=== PATIENT | male | born 1980 | race Caucasian/White ===

== ENCOUNTER 2019-02-20 06:50 | Inpatient (IN) | payer BC ==
[2019-02-20] MEDS ORDERED: HYDROmorphone 1 MG/ML Syringe IVPUSH PRN (07:18)
[2019-02-20] MEDS ORDERED: Sodium Chloride 0.9% 10 ML Syringe FLUSH PRN (07:22)
[2019-02-20] MEDS ORDERED: Sodium Chloride 0.9% 2.5 ML Syringe FLUSH PRN (07:22)
[2019-02-20] MEDS ORDERED: Sodium Chloride 0.9% 10 ML SDV IV PRN (07:22)
[2019-02-20] MEDS ORDERED: Lactated Ringers 1,000 ML IV SCH (07:30)
[2019-02-20] MEDS ORDERED: Bupivacaine 25%/EPINEPHrine/PF 30 ML ONE (07:30)
[2019-02-20] MEDS ORDERED: Propofol 200 MG/20 ML SDV ONE (07:32)
[2019-02-20] MEDS ORDERED: Lidocaine 2% 5 ML SDV ONE (07:32)
[2019-02-20] MEDS ORDERED: Rocuronium 100 MG/10 ML Syringe ONE ×2 (07:32→10:56)
[2019-02-20] MEDS ORDERED: Midazolam 1 MG/ML 2 ML SDV ONE (07:33)
[2019-02-20] MEDS ORDERED: fentaNYL 250 MCG/5 ML SDV ONE (07:33)
--- NOTE | 2019-02-20 08:04 | PCM.PREANE ---
Preanesthetic Assessment - Anesthesia/Transfusion/Family Hx Anesthesia History: Prior Anesthesia Without Reaction Family History of Anesthesia Reaction: No Transfusion History: No Prior Transfusion(s) - Review of Systems Pulmonary: No Symptoms Cardiovascular: No Symptoms Gastrointestinal: Abdominal Pain Neurological: No Symptoms Other: Reports: None - Physical Assessment ASA Class: 2E Mental Status: Alert & Oriented x3 Airway Class: Mallampati = 2 Dentition: Reports: Normal Dentition ROM/Head Extension: Full Lungs: Clear to Auscultation, Normal Respiratory Effort Cardiovascular: Regular Rate, Regular Rhythm - Allergies Allergies/Adverse Reactions: Allergies Allergy/AdvReac Type Severity Reaction Status Date / Time Sulfa (Sulfonamide Allergy Redness Verified 10/15/18 04:11 MDT Antibiotics) - Blood Blood Available: No - Anesthesia Plan Pre-Op Medication Ordered: None - Acknowledgements Anesthesia Type Planned: General Anesthesia Pt an Appropriate Candidate for the Planned Anesthesia: Yes Alternatives and Risks of Anesthesia Discussed w Pt/Guardian: Yes Pt/Guardian Understands and Agrees with Anesthesia Plan: Yes Additional Comments: PMH: acute abdomen, s/p prior appy, hx meth use last 3 days ago, npo 24 hr PLAN: GET for diagnostic laparoscopy followed by open xlap if necessary PreAnesthesia Questionnaire Respiratory History: Reports: Bronchitis, Recurrent Other Respiratory History: as a child Gastrointestinal History: Reports: Other (See Below) Other Gastrointestinal History: Bloody diarrhea (e.coli) and colitis February 2018 Other Musculoskeletal History: Injury/Hairline fracture to right foot resulting in DVT to right calf. Neurological History: Reports: None Psychiatric History: Reports: None Endocrine/Metabolic History: Reports: None Hematologic History: Reports: Other (See Below) Other Hematologic History: Used Xarelto for DVT diagnosis. - Infectious Disease History Infectious Disease History: Reports: Other (See Below) Other Infectious Disease History: e-coli - Past Surgical History HEENT Surgical History: Reports: LASIK - HOME MEDS Home Medications: Home Meds Amoxicillin/Potassium Clav [Amox Tr-K Clv 875-125 mg Tab] 1 each PO BID 10 Days #20 tablet 10/20/18 [Rx] HYDROmorphone [Dilaudid] 2 mg PO TID PRN 30 Days #60 tab 10/20/18 [Rx] - CURRENT (IN HOUSE) MEDS Current Meds: Current Medications Hydromorphone HCl (Dilaudid) 0.5 mg IVPUSH Q1H PRN PRN Reason: Abdominal Pain Lactated Ringer's (Ringers, Lactated) 1,000 mls @ 125 mls/hr IV ASDIRECTED UMA Sodium Chloride (Saline Flush) 10 ml FLUSH ASDIRECTED PRN PRN Reason: Keep Vein Open Sodium Chloride (Saline Flush) 2.5 ml FLUSH ASDIRECTED PRN PRN Reason: Keep Vein Open Sodium Chloride (Normal Saline) 10 ml IV ASDIRECTED PRN PRN Reason: IV Use Discontinued Medications Fentanyl (Sublimaze) Confirm Administered Dose 250 mcg .ROUTE .STK-MED ONE Stop: 02/20/19 07:34 Bupivacaine HCl/Epinephrine Bitart (Sensorc Mpf 0.25%-Epi 1:[id number]) Confirm Administered Dose 30 mls @ as directed .ROUTE .STK-MED ONE Stop: 02/20/19 07:31 Lidocaine (Xylocaine-Mpf 2%) Confirm Administered Dose 5 ml .ROUTE .STK-MED ONE Stop: 02/20/19 07:33 Midazolam HCl (Versed 1 Mg/Ml) Confirm Administered Dose 2 mg .ROUTE .STK-MED ONE Stop: 02/20/19 07:34 Propofol (Diprivan 20 Ml) Confirm Administered Dose 400 mg .ROUTE .STK-MED ONE Stop: 02/20/19 07:33 Rocuronium Sapello (Zemuron) Confirm Administered Dose 100 mg .ROUTE .STK-MED ONE Stop: 02/20/19 07:33 Succinylcholine Chloride (Succinylcholine Chloride) Confirm Administered Dose 200 mg .ROUTE .STK-MED ONE Stop: 02/20/19 07:33
[2019-02-20] MEDS ORDERED: Sodium Chloride 0.9% 20 ML ONE (08:31)
[2019-02-20] MEDS ORDERED: Phenylephrine/Normal Saline 100 MCG/ML 10 ML Syringe ONE (08:40)
[2019-02-20] MEDS ORDERED: cefOXitin 100 ML ONE (08:40)
[2019-02-20] MEDS ORDERED: 50% Dextrose in Water 50 ML Syringe IVPUSH PRN (08:51)
[2019-02-20] MEDS ORDERED: Albuterol 0.083% 2.5 MG/3 ML Neb Soln NEB PRN (08:51)
[2019-02-20] MEDS ORDERED: Atropine 0.1 MG/ML 10 ML Syringe IVPUSH PRN ×2 (08:51)
[2019-02-20] MEDS ORDERED: Naloxone 0.4 MG/ML Syringe IVPUSH PRN (08:51)
[2019-02-20] MEDS ORDERED: EPINEPHrine 1:10,000 1 MG/10 ML Syringe IVPUSH PRN (08:51)
[2019-02-20] MEDS ORDERED: fentaNYL 100 MCG/2 ML SDV IVPUSH PRN (08:51)
[2019-02-20] MEDS ORDERED: ceFAZolin 1 GM Vial ONE (09:48)
[2019-02-20] MEDS ORDERED: HYDROmorphone 2 MG/ML Syringe ONE ×3 (09:58→15:26)
[2019-02-20] MEDS ORDERED: Sugammadex Sodium 200 MG/2 ML VIAL ONE (10:59)
[2019-02-20] MEDS ORDERED: Ondansetron 4 MG/2 ML SDV ONE (11:56)
[2019-02-20] MEDS ORDERED: Dexamethasone 4 MG/ML 5 ML MDV ONE (11:56)
--- NOTE | 2019-02-20 12:19 | PCM.SN ---
- Free Text/Narrative Note: pt seen, chart reviewed; acute appendicitis w ascites, no free air, 4 mos after lap appendectomy at outside hospital; discussed ct w 2 radiologist reading, lots of pus, appendix 2.4 cm w appendicolith, clinically surgical abdomen, pt is taking to or for ex lap, poss appendectomy, poss bowel resection, poss ostomy ; pt concurred and proceed [id number]
[2019-02-20] MEDS ORDERED: cefOXitin 1 GM in Premix Bag 1 BAG IV SCH (12:30)
[2019-02-20] MEDS: Labetalol 100 MG/20 ML MDV IVPUSH ONE ×2 (12:43→13:15)
--- NOTE | 2019-02-20 12:44 | PCM.OPNOTE ---
- General Post-Op/Procedure Note Date of Surgery/Procedure: 02/20/19 Operative Procedure(s): 1) laparoscopic attempt converted to open appendectomy. 2) ex lap. 3) appendectomy Findings: appendix completely fibrotic and confirmed by path on frozen session; peritoneal fluid is purulent, and an appendicolith was flowing in the appendicoth mass; [id number] Pre Op Diagnosis: acute appendicitis Post-Op Diagnosis: interval appendicitis Anesthesia Technique: General ET Tube Primary Surgeon: Benjamin Quinones Secondary Surgeon: Lashonda Tellez Pathology: sent Surgical Drain/Tube Type: Matthew Graf Flat Drain Complications: None Condition: Good
[2019-02-20] MEDS ORDERED: Labetalol 100 MG/20 ML MDV IVPUSH ONE (13:11)
[2019-02-20] MEDS: HYDROmorphone 2 MG/ML Syringe ONE ×2 (13:21→13:33)
[2019-02-20] MEDS ORDERED: HYDROmorphone 2 MG/ML Syringe IVPUSH PRN (13:31)
[2019-02-20] MEDS ORDERED: hydrALAZINE 20 MG/ML SDV IVPUSH ONE ×3 (13:32→15:09)
--- NOTE | 2019-02-20 14:45 | PCM.POSTAN ---
POST ANESTHESIA ASSESSMENT - MENTAL STATUS Mental Status: Somnolent - VITAL SIGNS Vital Signs: Last Vital Signs Temp 99.9 F 02/20/19 12:10 Pulse 80 02/20/19 14:30 Resp 12 02/20/19 14:30 BP 162/97 H 02/20/19 14:30 Pulse Ox 99 02/20/19 14:30 - RESPIRATORY Respiratory Status: Respiratory Rate WNL, Airway Patent, O2 Saturation Stable, Supplemental Oxygen - CARDIOVASCULAR CV Status: Pulse Rate WNL, Elevated Blood Pressure (diastolic BP down from 115 to 99 after labetalol 20+20, and hydralazine 10 mg) - GASTROINTESTINAL GI Status: No Symptoms - POST OP HYDRATION Hydration Status: Adequate & Stable - OBSERVATIONS Free Text/Narrative:: I believe this patient wouold benefit from the closing nursing care in our ICU for: 1) monitoring and control of hypertension, 2)monitoring for respiratory depression from parenteral narcotics- pt already showing pain/sedation mismatch 3) monitoring and care for withdrawl from stimulant use disorder. Discussed with resident on hospitalist service. Agreed to admit to ICU when bed/ nursing staff can be arrainged.
--- NOTE | 2019-02-20 14:52 | PCM.CONS ---
H&P History of Present Illness - General Date of Service: 02/20/19 Admit Problem/Dx: Admission Diagnosis/Problem Admission Diagnosis/Problem Peritonitis - History of Present Illness Initial Comments - Free Text/Narative: The patient is a 38 year old male admitted by general surgery, Dr. Quinones, after exploratory laparotomy and appendectomy. Per report he had a necrotic appendix adhered to the right bowel wall. The patient had undergone a laparoscopic appendectomy 6 months ago at an outside facility, no appendix was visualized and he was closed. The patient reports methamphetamine and marijuana use. Uses meth every couple weeks, last use was on Monday. Uses marijuana daily. No IV drug use since 2009. Has a couple drinks every once in a while, no regular use , no history of withdrawal. Smokes 1/2 pack of cigarettes daily. Postoperatively he was hypertensive with a BP of 171/107, after 2 doses of 20 mg labetalol and 10 mg hydralazine his blood pressure improved to 159/105. Rebecca denies history of blood pressure issues. Patient reports he had a DVT sometime last year, was on Xarelto, ran out of insurance and hasn't taken it in 3-4 months. Has been taking aspirin. Only complaint is abdominal pain. - Related Data Allergies/Adverse Reactions: Allergies Allergy/AdvReac Type Severity Reaction Status Date / Time Sulfa (Sulfonamide Allergy Redness Verified 10/15/18 04:11 MDT Antibiotics) Home Medications: Home Meds Amoxicillin/Potassium Clav [Amox Tr-K Clv 875-125 mg Tab] 1 each PO BID 10 Days #20 tablet 10/20/18 [Rx] HYDROmorphone [Dilaudid] 2 mg PO TID PRN 30 Days #60 tab 10/20/18 [Rx] Past Medical History HEENT History: Reports: None Cardiovascular History: Reports: None Respiratory History: Reports: Bronchitis, Recurrent Other Respiratory History: as a child Gastrointestinal History: Reports: Other (See Below) Other Gastrointestinal History: Bloody diarrhea (e.coli) and colitis February 2018 Other Musculoskeletal History: Injury/Hairline fracture to right foot resulting in DVT to right calf. Neurological History: Reports: None Psychiatric History: Reports: None Endocrine/Metabolic History: Reports: None Hematologic History: Reports: Other (See Below) Other Hematologic History: Used Xarelto for DVT diagnosis. - Infectious Disease History Infectious Disease History: Reports: Other (See Below) Other Infectious Disease History: e-coli - Past Surgical History HEENT Surgical History: Reports: RAMOS Social & Family History - Family History Cardiac: Reports: Hypertension - Tobacco Use Smoking Status *Q: Current Every Day Smoker Packs/Tins Daily: 0.5 - Caffeine Use Caffeine Use: Reports: Coffee, Soda - Alcohol Use Alcohol Use History: Yes - Recreational Drug Use Recreational Drug Use: Yes Drug Use in Last 12 Months: Yes Recreational Drug Type: Reports: Marijuana/Hashish, Methamphetamine - Living Situation & Occupation Living situation: Reports: Single Occupation: Employed (Works in heavy equipment) H&P Review of Systems - Review of Systems: Review Of Systems: See Below General: Reports: Diaphoresis. Denies: Fever HEENT: Reports: No Symptoms Pulmonary: Reports: No Symptoms Cardiovascular: Reports: No Symptoms Gastrointestinal: Reports: Abdominal Pain Genitourinary: Reports: No Symptoms Musculoskeletal: Reports: No Symptoms Skin: Reports: No Symptoms Psychiatric: Reports: No Symptoms Neurological: Reports: No Symptoms Hematologic/Lymphatic: Reports: No Symptoms Immunologic: Reports: No Symptoms Exam - Exam Exam: See Below - Vital Signs Vital Signs: Last Vital Signs Temp 99.9 F 02/20/19 12:10 Pulse 80 02/20/19 14:30 Resp 12 02/20/19 14:30 BP 162/97 H 02/20/19 14:30 Pulse Ox 99 02/20/19 14:30 - Exam Quality Assessment: Supplemental Oxygen General: Alert, Oriented HEENT: Conjunctiva Clear, EOMI, Mucosa Moist & Thomas, Posterior Pharynx Clear, Pupils Equal, Pupils Reactive Neck: Supple, Trachea Midline Lungs: Clear to Auscultation, Normal Respiratory Effort Cardiovascular: Regular Rate, Regular Rhythm GI/Abdominal Exam: Other (abominal bandage with VIGNESH tube in place and draining. NG in place) Extremities: No Pedal Edema Skin: Warm, Moist Neuro Extensive - Mental Status: Alert Psychiatric: Alert, Normal Affect, Normal Mood - Patient Data Sj Results Last 24 hrs: Microbiology 02/20/19 09:07 Gram Stain - Preliminary Peritoneal Fluid Consult PN Assessment/Plan Problem List Initiated/Reviewed/Updated: Yes My Orders Last 24 Hours: My Active Orders 02/20/19 14:28 Transfer Patient (Change bed) [ADT] ONETIME Plan: Medical Team Consult: 1. S/P exploratory laparotomy and appendectomy- orders per primary team--surgery 2.Hx of meth and marijuana use, concern about withdrawal- will order prn Ativan for withdrawal symptoms 3. Post- operative HTN- ensure adequate pain control, will continue to monitor DVT prophylaxis- medical team recommends DVT prophylaxis-will leave decision to primary team
--- NOTE | 2019-02-20 15:13 | OR ---
SURGEON: Benjamin Quinones MD DATE OF PROCEDURE: 02/20/2019 PREOPERATIVE DIAGNOSIS: Acute appendicitis. POSTOPERATIVE DIAGNOSIS: Interval appendectomy. PRIMARY SURGEON: Benjamin Quinones MD. FIREARMS INSPECTOR: Lashonda Tellez MD. COMPLICATIONS: None. PROCEDURES PERFORMED: 1. Laparoscopic converted to open appendectomy. 2. Exploratory laparotomy. 3. Appendectomy. FINDINGS: The appendix apparently is totally fibrotic and becomes flat down into the back wall of the peritoneal cavity and it was confirmed with pathology on frozen section. There was no lumen of the appendix and the appendix and the terminal ileum and the cecum forming a mass and an appendicolith was flowing in that neighborhood. Peritoneal fluid is completely purulent. DESCRIPTION OF PROCEDURE: The patient was taken to the operating room and placed in the supine position. Upon induction of general endotracheal anesthesia, the patient's abdomen was prepped and draped in sterile fashion. Time-out was being called, the patient identified, procedure identified, antibiotic given. Procedure then started. After assessment of appropriate landmarks, using Diamond technique, a 12 mm trocar was placed, supraumbilical. Upon gaining entrance in the abdominal cavity, immediately encountered a large amount of purulent peritoneal fluid. Then followed with placement of 5 mm trocar on the right upper quadrant and the suprapubic area. Once gained entrance to abdominal cavity , pneumopertoneum was accomplished. Followed the tenia of the colonto cecum, could not find any appendix or appendix stump either. Ffinally we obtained a report from outside hospital that a laparoscopic appendectomy was attempted, but no appendix found in previous surgery. So in a situation like that, with the patient clearly with peritonitis and abd abscess, and with CT scan reading as acute appendicitis, or appendicitis of appendix stump, we decided to converted to exploratory laparotomy. Using a skin scalpel, a midline incision beveled to the left of the umbilicus was made and the peritoneal cavity was then entered in standard fashion. Upon gaining entrance in the peritoneal cavity, followed the tenia of the colon on the right colon and to the cecum. The terminal ileum was identified, the cecum identified, and failed to find any appendix or appendix stump. We finally mobilized the cecum a little bit towards the liver and found out that a flattened tubular structure, completely flattened, lying at the bottom of the abdominal wall, the posterior abdominal wall, and believed that this must be the appendix. So carefully delineated and mobilized the tubular structure and amputated at the base and sent for frozen section. Frozen section returned that it is the appendix, with the lumen obliterated. There were two holes at appendix cecal mass, likely where the appendicolith walled off, is now open; It was difficult to delineate where the actual attachment of the appendix is towards to cecum. Since the appendicolith came up by itself and the pus suggests that maybe the patient has a collection of purulent material, but somehow it opened up and caused the peritonitis. So with the two openings at the cecum, we put the whole thing under water level and squeezed the cecum. Failed to see any bubble such as it is not a perforation or the perforation has been walled off and sealed off. Again, we did this two times, failed to see any bubble from the cecum. So it may be a serosal tear or the fibrosis of the walled off perforated appendix in the past, which has been four months by now. We used a 3-0 pop-off silk and gave a Lambert stitch and closed the two holes and then buttressed with a piece of omentum, again using 3-0 pop-off to buttress the two openings. The piece of omentum used is about 4 x 4 cm followed by extensive irrigation. The irrigations are clear, which we used over 4 to 5 L of irrigation. A 10 flat VIGNESH drain was placed on the lower suprapubic trocar site, anchored to the skin using 2-0 silk. The peritoneal cavity was closed by the use of a double strand PDS #1. Upon closing, sponge count and instrument counts were correct and the skin approximated by use of skin staple. Every layer of closing was followed by extensive irrigation and followed by appropriate dressing. The patient was awakened, extubated, and transferred to recovery room in hemodynamically stable condition. The patient tolerated the procedure well. There were no intraoperative complications. Dr. Quinones was present throughout the whole procedure. LESLIE / JOHN /[id number] AC
[2019-02-20] MEDS ORDERED: LORazepam 2 MG/ML SDV IVPUSH PRN (15:40)
[2019-02-20] MEDS: Morphine PF 30 MG/30 ML PCA Vial IV PRN (15:50)
[2019-02-20 16:12] LABS: BLOOD UREA NITROGEN,BUN 10 mg/dL (7.0-18.0); CARBON DIOXIDE,CO2 22.7 mmol/L (21.0-32.0); CHLORIDE,CL 100 mmol/L (98-107); GLUCOSE RANDOM 152 mg/dL (74-106); POTASSIUM,K 4.4 mmol/L (3.5-5.1); SODIUM,NA 131 mmol/L (136-148)
[2019-02-20] MEDS: Lactated Ringers 1,000 ML IV SCH ×2 (16:20→22:30)
--- NOTE | 2019-02-20 16:50 | HP ---
DATE OF : 1980 PRIMARY CARE PHYSICIAN: None PCP ADMITTING DIAGNOSIS: Acute appendicitis. HISTORY OF PRESENT ILLNESS: The patient is a 38-year-old gentleman, complained about 18-hour history of acute onset of periumbilical pain, subsequently migrated to the right lower quadrant. Sought help in an outside medical center and CAT scan, the patient read as acute appendicitis with fluid, no free air. The patient was transferred to our hospital for further surgical management. The patient has a pretty confusing and complicated medical history about his appendix. The patient initially presented to outside facility, more detail is on present chart, and the best I can make out and the best can patient tell me is he had an attempted laparoscopic appendectomy done four months ago in October and apparently they could not find the appendix and so put in a drain and stopped. It was unclear at that time whether the patient's appendix is gone or not. Discussed with the radiologists and they maintained there was lot of pus and possible appendicitis of the appendix stump. We attempted trying very very hard getting contact with the other hospital and after 2-1/2 hours finally we got the op note which confirmed the whole story. The patient had attempted laparoscopic appendectomy, but failed to find appendix, so did not have appendix done. PAST MEDICAL HISTORY: Significant for no diabetes, ND, CVA, hypertension. On drug test, the patient has meth as well as marijuana. PAST SURGICAL HISTORY: Right inguinal hernia repair and attempted laparoscopic appendectomy. SOCIAL HISTORY: Recreational drug use, marijuana and meth. ALLERGIES: Please refer to nursing for details. MEDICATION: Please refer to nursing for details. PHYSICAL EXAMINATION: GENERAL: A gentleman who is lying with guarding in the bed, and any single move, the patient will scream out in loud voice. HEENT: Normocephalic and atraumatic. Sclerae anicteric. LUNGS: Clear to auscultation. HEART: Regular rate and rhythm. ABDOMEN: Guarding and decreased bowel sounds and exquisite tenderness in all four quadrants and positive peritoneal sign. LABORATORY DATA: White count 12.9 and CAT scan as alluded above. IMPRESSION: Acute surgical abdomen with elevated white count and possible dilated appendix of 2.4 cm with appendicolith per CAT scan and spent over 10 minutes with another radiology which maintained the same thing, likely acute appendicitis or appendix stump appendicitis. With the patient's clinical situation, elevated white count, peritoneal sign, and pain, the patient is taken to surgery by myself on an urgent basis and laparotomy, possible appendectomy, possible bowel resection, possible ostomy. The patient concurred to proceed as planned. Add: Pt later remarked he was doing a lot severe lifting/pushing/jumping up and down physical work, then he fell sick. It is possible the walled off abscess with appendicolith came lose due to trauma. LESLIE / JOHN /[id number] MTDOrly
[2019-02-20] MEDS: cefOXitin 1 GM in Premix Bag 1 BAG IV SCH ×2 (17:25→22:29)
--- NOTE | 2019-02-20 21:41 | PN ---
THC Physician - Brief Progress [id number]/18/2019 21:33[facility] Anupama Lorenzo, [place] - RICARDO (STEPHANI) - JACQUELYN BRENNANDate of Service 02/20/2019 21:33HPI/Events of N ote eICU Brief Admssion [id number] M presented with acute abdomen. S/p OR for ex lap for suspected appe ndicitis/peritonitis. Necrotic appendix resectedPost op HTN therefore moved to ICU for further monito ring and management.+Meth and MJ usageOn CameraAwake and alert, appropriate with bedside RNHR 105 Sin usBP 161/92RR 14 Sats 94%Preop labs reviewedOn Empiric antibiotics- cefoxitinPain controlDiet per Kristie geryPRN ativan and hydralazineProtonixSCDs for DVT prophInterventions Major-Hypertension - evaluation and management, Other: Post operative managementIntermediate-Communication with other healthcare pro viders and/or family
[2019-02-21] MEDS: Morphine PF 30 MG/30 ML PCA Vial IV PRN (03:40)
[2019-02-21] MEDS: cefOXitin 1 GM in Premix Bag 1 BAG IV SCH ×4 (04:37→23:25)
[2019-02-21] MEDS: Lactated Ringers 1,000 ML IV SCH ×3 (04:37→19:31)
[2019-02-21 07:13] LABS: BLOOD UREA NITROGEN,BUN 11 mg/dL (7.0-18.0); CARBON DIOXIDE,CO2 24.9 mmol/L (21.0-32.0); CHLORIDE,CL 99 mmol/L (98-107); GLUCOSE RANDOM 125 mg/dL (74-106); POTASSIUM,K 4.7 mmol/L (3.5-5.1); SODIUM,NA 133 mmol/L (136-148)
[2019-02-21] MEDS: Ondansetron 4 MG/2 ML SDV IVPUSH PRN ×2 (07:18→23:30)
--- NOTE | 2019-02-21 08:15 | PCM.CONSN ---
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 Would like Dilaudid. Reports abdominal pain from surgery. Would also like to eat and have NG tube removed. Medical team consulted on withdrawal symptoms and HTN. He has not needed any Ativan for withdrawal symptoms, UDS yesterday positive for THC and opioids (UDS obtained after surgery and he had received pain medications). His blood pressure was improved overnight in 140-150s/90s but is elevated this morning with his increased pain. Patient denies fever/chill, chest pain, shortness of breath, or nausea. - Review of Systems General: Reports: No Symptoms HEENT: Reports: No Symptoms Pulmonary: Reports: No Symptoms Cardiovascular: Reports: No Symptoms Gastrointestinal: Reports: Abdominal Pain. Denies: Nausea, Vomiting Genitourinary: Reports: No Symptoms Musculoskeletal: Reports: No Symptoms Skin: Reports: No Symptoms Neurological: Reports: No Symptoms Psychiatric: Reports: No Symptoms - Patient Data Vitals - Most Recent: Last Vital Signs Temp 98.1 F 02/21/19 04:00 Pulse 72 02/21/19 06:00 Resp 20 02/21/19 06:00 BP 172/91 H 02/21/19 06:00 Pulse Ox 94 L 02/21/19 06:00 Weight - Most Recent: 80.3 kg I&O - Last 24 Hours: Intake & Output 02/20/19 02/21/19 02/21/19 22:59 06:59 14:59 Intake Total 1100 1823 Output Total 1600 2532 Balance -500 -709 Lab Results Last 24 Hours: Laboratory Results - last 24 hr 02/20/19 02/20/19 02/20/19 Range/Units 15:30 15:30 19:45 WBC 19.25 H (4.0-11.0) K/uL RBC 4.82 (4.50-5.90) M/uL Hgb 14.8 (13.0-17.0) g/dL Hct 42.2 (38.0-50.0) % MCV 87.6 (80.0-98.0) fL MCH 30.7 (27.0-32.0) pg MCHC 35.1 (31.0-37.0) g/dL RDW Std Deviation 43.0 (28.0-62.0) fl RDW Coeff of Roe 14 (11.0-15.0) % Plt Count 176 (150-400) K/uL MPV 10.10 (7.40-12.00) fL Neut % (Auto) 96.7 H (48.0-80.0) % Lymph % (Auto) 1.6 L (16.0-40.0) % [place] % (Auto) 1.7 (0.0-15.0) % Eos % (Auto) 0.0 (0.0-7.0) % Baso % (Auto) 0.0 (0.0-1.5) % Neut # (Auto) 18.6 H (1.4-5.7) K/uL Lymph # (Auto) 0.3 L (0.6-2.4) K/uL [place] # (Auto) 0.3 (0.0-0.8) K/uL Eos # (Auto) 0.0 (0.0-0.7) K/uL Baso # (Auto) 0.0 (0.0-0.1) K/uL Nucleated RBC % 0.0 /100WBC Nucleated RBCs # 0 K/uL Sodium 131 L (136-148) mmol/L Potassium 4.4 (3.5-5.1) mmol/L Chloride 100 (98-107) mmol/L Carbon Dioxide 22.7 (21.0-32.0) mmol/L BUN 10 (7.0-18.0) mg/dL Creatinine 0.8 (0.8-1.3) mg/dL Est Cr Clr Drug Dosing TNP Estimated GFR (MDRD) > 60.0 ml/min Glucose 152 H (74-106) mg/dL Calcium 8.1 L (8.5-10.1) mg/dL Total Bilirubin 0.6 (0.2-1.0) mg/dL AST 19 (15-37) IU/L ALT 21 (14-63) IU/L Alkaline Phosphatase 47 (46-116) U/L Total Protein 6.3 L (6.4-8.2) g/dL Albumin 3.1 L (3.4-5.0) g/dL Globulin 3.2 (2.6-4.0) g/dL Albumin/Globulin Ratio 1.0 (0.9-1.6) Urine Opiates Screen POSITIVE (NEGATIVE) Ur Oxycodone Screen NEGATIVE (NEGATIVE) Urine Methadone Screen NEGATIVE (NEGATIVE) Ur Barbiturates Screen NEGATIVE (NEGATIVE) Ur Phencyclidine Scrn NEGATIVE (NEGATIVE) Ur Amphetamine Screen NEGATIVE (NEGATIVE) U Methamphetamines Scrn NEGATIVE (NEGATIVE) U Benzodiazepines Scrn NEGATIVE (NEGATIVE) U Cocaine Metab Screen NEGATIVE (NEGATIVE) U Marijuana (THC) Screen POSITIVE (NEGATIVE) 02/21/19 02/21/19 Range/Units 06:25 06:25 WBC 16.73 H (4.0-11.0) K/uL RBC 5.08 (4.50-5.90) M/uL Hgb 15.5 (13.0-17.0) g/dL Hct 44.8 (38.0-50.0) % MCV 88.2 (80.0-98.0) fL MCH 30.5 (27.0-32.0) pg MCHC 34.6 (31.0-37.0) g/dL RDW Std Deviation 44.3 (28.0-62.0) fl RDW Coeff of Roe 14 (11.0-15.0) % Plt Count 209 (150-400) K/uL MPV 10.30 (7.40-12.00) fL Neut % (Auto) 86.7 H (48.0-80.0) % Lymph % (Auto) 6.9 L (16.0-40.0) % [place] % (Auto) 6.2 (0.0-15.0) % Eos % (Auto) 0.1 (0.0-7.0) % Baso % (Auto) 0.1 (0.0-1.5) % Neut # (Auto) 14.5 H (1.4-5.7) K/uL Lymph # (Auto) 1.2 (0.6-2.4) K/uL [place] # (Auto) 1.0 H (0.0-0.8) K/uL Eos # (Auto) 0.0 (0.0-0.7) K/uL Baso # (Auto) 0.0 (0.0-0.1) K/uL Nucleated RBC % 0.0 /100WBC Nucleated RBCs # 0 K/uL Sodium 133 L (136-148) mmol/L Potassium 4.7 (3.5-5.1) mmol/L Chloride 99 (98-107) mmol/L Carbon Dioxide 24.9 (21.0-32.0) mmol/L BUN 11 (7.0-18.0) mg/dL Creatinine 1.1 (0.8-1.3) mg/dL Est Cr Clr Drug Dosing 98.96 Estimated GFR (MDRD) > 60.0 ml/min Glucose 125 H (74-106) mg/dL Calcium 8.9 (8.5-10.1) mg/dL Total Bilirubin (0.2-1.0) mg/dL AST (15-37) IU/L ALT (14-63) IU/L Alkaline Phosphatase (46-116) U/L Total Protein (6.4-8.2) g/dL Albumin (3.4-5.0) g/dL Globulin (2.6-4.0) g/dL Albumin/Globulin Ratio (0.9-1.6) Urine Opiates Screen (NEGATIVE) Ur Oxycodone Screen (NEGATIVE) Urine Methadone Screen (NEGATIVE) Ur Barbiturates Screen (NEGATIVE) Ur Phencyclidine Scrn (NEGATIVE) Ur Amphetamine Screen (NEGATIVE) U Methamphetamines Scrn (NEGATIVE) U Benzodiazepines Scrn (NEGATIVE) U Cocaine Metab Screen (NEGATIVE) U Marijuana (THC) Screen (NEGATIVE) Sj Results Last 24 Hours: Microbiology 02/20/19 09:07 Gram Stain - Preliminary Peritoneal Fluid Med Orders - Current: Current Medications Hydromorphone HCl (Dilaudid) 0.5 mg IVPUSH Q1H PRN PRN Reason: Abdominal Pain Pantoprazole Sodium 40 mg/ (Sodium Chloride) 10 mls @ 300 mls/hr IV DAILY UMA Lactated Ringer's (Ringers, Lactated) 1,000 mls @ 150 mls/hr IV ASDIRECTED UMA Last Admin: 02/21/19 04:37 Dose: 150 mls/hr Cefoxitin Sodium 1 gm/ Premix 50 mls @ 100 mls/hr IV Q6H UMA Last Admin: 02/21/19 04:37 Dose: 100 mls/hr Lorazepam (Ativan) 1 mg IVPUSH Q4H PRN PRN Reason: Withdrawal Symptoms Morphine Sulfate (Morphine Drier And Grinder Tender 30 Mg In 30 Ml) 0 mg IV ASDIRECTED PRN; Protocol PRN Reason: Pain (severe 7-10) Last Admin: 02/21/19 03:40 Dose: 30 mg Ondansetron HCl (Zofran) 4 mg IVPUSH Q8H PRN PRN Reason: Nausea/Vomiting Last Admin: 02/21/19 07:18 Dose: 4 mg Discontinued Medications Albuterol (Proventil Neb Soln) 2.5 mg NEB ONETIME PRN PRN Reason: Wheezing Atropine Sulfate (Atropine 0.1 Mg/Ml) 0.5 mg IVPUSH ASDIRECTED PRN PRN Reason: Hypo-perfusion Atropine Sulfate (Atropine 0.1 Mg/Ml) 1 mg IVPUSH ASDIRECTED PRN PRN Reason: Hypo-Perfusion Cefazolin Sodium (Ancef) Confirm Administered Dose 1 gm .ROUTE .STK-MED ONE Stop: 02/20/19 09:49 Dexamethasone (Dexamethasone) Confirm Administered Dose 20 mg .ROUTE .STK-MED ONE Stop: 02/20/19 11:57 Dextrose/Water (Dextrose 50% In Water) 50 ml IVPUSH ASDIRECTED PRN PRN Reason: Hypoglycemia Epinephrine HCl (Epinephrine 1:10,000) 1 mg IVPUSH ASDIRECTED PRN PRN Reason: ACLS Guidelines Fentanyl (Sublimaze) Confirm Administered Dose 250 mcg .ROUTE .STK-MED ONE Stop: 02/20/19 07:34 Fentanyl (Sublimaze) 50 mcg IVPUSH Q5M PRN PRN Reason: Pain Hydralazine HCl (Apresoline) 10 mg IVPUSH ONETIME ONE Stop: 02/20/19 13:33 Last Admin: 02/20/19 14:00 Dose: 10 mg Hydralazine HCl (Apresoline) 10 mg IVPUSH ONETIME ONE Stop: 02/20/19 14:01 Last Admin: 02/20/19 15:10 Dose: 10 mg Hydralazine HCl (Apresoline) 10 mg IVPUSH ONETIME ONE Stop: 02/20/19 15:10 Last Admin: 02/20/19 19:36 Dose: Not Given Hydromorphone HCl (Dilaudid) 0.5 mg IVPUSH Q1H PRN PRN Reason: Abdominal Pain Last Admin: 02/20/19 12:50 Dose: 0.5 mg Hydromorphone HCl (Dilaudid) Confirm Administered Dose 2 mg .ROUTE .STK-MED ONE Stop: 02/20/19 09:59 Hydromorphone HCl (Dilaudid) Confirm Administered Dose 2 mg .ROUTE .STK-MED ONE Stop: 02/20/19 12:46 Last Admin: 02/20/19 13:33 Dose: 1 mg Hydromorphone HCl (Dilaudid) Confirm Administered Dose 2 mg .ROUTE .ST-MED ONE Stop: 02/20/19 13:30 Last Admin: 02/20/19 19:36 Dose: Not Given Hydromorphone HCl (Dilaudid) Confirm Administered Dose 2 mg .ROUTE .ST-MED ONE Stop: 02/20/19 15:27 Last Admin: 02/20/19 15:31 Dose: 1 mg Lactated Ringer's (Ringers, Lactated) 1,000 mls @ 125 mls/hr IV ASDIRECTED [facility] Bupivacaine HCl/Epinephrine Bitart (Sensorc Mpf 0.25%-Epi [id number]) Confirm Administered Dose 30 mls @ as directed .ROUTE .ST-MED ONE Stop: 02/20/19 07:31 Sodium Chloride (Normal Saline) Confirm Administered Dose 20 mls @ as directed .ROUTE .ST-MED ONE Stop: 02/20/19 08:32 Cefoxitin Sodium (Mefoxin In Dextrose,Iso-Osm 1 Gm/50 Ml) Confirm Administered Dose 100 mls @ as directed .ROUTE .STK-MED ONE Stop: 02/20/19 08:41 Acetaminophen (Ofirmev) Confirm Administered Dose 100 mls @ as directed IV .ST- MED ONE Stop: 02/20/19 11:00 Cefoxitin Sodium 1 gm/ Premix 50 mls @ 100 mls/hr IV Q6H [facility] Last Admin: 02/20/19 19:01 Dose: Not Given Labetalol HCl (Normodyne) 20 mg IVPUSH ONETIME ONE; Protocol Stop: 02/20/19 12:32 Last Admin: 02/20/19 13:15 Dose: 20 mg Labetalol HCl (Normodyne) 20 mg IVPUSH ONETIME ONE; Protocol Stop: 02/20/19 13:12 Last Admin: 02/20/19 19:36 Dose: Not Given Lidocaine (Xylocaine-Mpf 2%) Confirm Administered Dose 5 ml .ROUTE .STK-MED ONE Stop: 02/20/19 07:33 Midazolam HCl (Versed 1 Mg/Ml) Confirm Administered Dose 2 mg .ROUTE .STK-MED ONE Stop: 02/20/19 07:34 Naloxone HCl (Narcan) 0.1 mg IVPUSH ASDIRECTED PRN PRN Reason: Respiratory Depression Ondansetron HCl (Zofran) Confirm Administered Dose 4 mg .ROUTE .STK-MED ONE Stop: 02/20/19 11:57 Phenylephrine HCl (Phenylephrine In Ns 100 Mcg/Ml) Confirm Administered Dose 1 mg .ROUTE .STK-MED ONE Stop: 02/20/19 08:41 Propofol (Diprivan 20 Ml) Confirm Administered Dose 400 mg .ROUTE .STK-MED ONE Stop: 02/20/19 07:33 Rocuronium [place] (Zemuron) Confirm Administered Dose 100 mg .ROUTE .STK-MED ONE Stop: 02/20/19 07:33 Rocuronium [place] (Zemuron) Confirm Administered Dose 100 mg .ROUTE .STK-MED ONE Stop: 02/20/19 10:57 Sodium Chloride (Saline Flush) 10 ml FLUSH ASDIRECTED PRN PRN Reason: Keep Vein Open Sodium Chloride (Saline Flush) 2.5 ml FLUSH ASDIRECTED PRN PRN Reason: Keep Vein Open Sodium Chloride (Normal Saline) 10 ml IV ASDIRECTED PRN PRN Reason: IV Use Succinylcholine Chloride (Succinylcholine Chloride) Confirm Administered Dose 200 mg .ROUTE .STK-MED ONE Stop: 02/20/19 07:33 Sugammadex Sodium (Bridion) Confirm Administered Dose 200 mg .ROUTE .STK-MED ONE Stop: 02/20/19 11:00 - Exam General: Alert, Oriented, Cooperative HEENT: Other (NG tube placed) Lungs: Clear to Auscultation, Normal Respiratory Effort Cardiovascular: Regular Rate, Regular Rhythm GI/Abdominal Exam: Other (bandaged, VIGNESH drain) Extremities: No Pedal Edema Skin: Warm, Dry Neurological: No New Focal Deficit Psy/Mental Status: Alert, Normal Affect, Normal Mood Consult PN Assessment/Plan Problem List Initiated/Reviewed/Updated: Yes My Orders Last 24 Hours: My Active Orders 02/20/19 14:28 Transfer Patient (Change bed) [ADT] ONETIME 02/20/19 15:40 LORazepam [Ativan] 1 mg IVPUSH Q4H PRN Plan: Medical Team Consult: 1. S/P exploratory laparotomy and appendectomy- orders per primary team--surgery , on Cefoxitin, NPO with NG placed. Patient requesting NG removed and diet, orders per primary team. 2.Hx of meth and marijuana use, concern about withdrawal- UDS positive for THC but not meth. Will order prn Ativan for withdrawal symptoms- hasn't received any Ativan 3. Post- operative HTN- ensure adequate pain control, patient reports pain not adequately controlled, requesting Dilaudid- pain control per primary team. Continue to monitor BP. DVT prophylaxis- medical team recommends DVT prophylaxis-will leave decision to primary team
[2019-02-21] MEDS: Pantoprazole 40 MG in Sodium Chloride 0.9% 10 ML IV SCH (09:24)
[2019-02-21] MEDS: LORazepam 2 MG/ML SDV IVPUSH SCH ×2 (10:05→19:02)
--- NOTE | 2019-02-21 10:37 | PCM.SURGPN ---
- General Info Date of Service: 02/21/19 Functional Status: Reports: Urinating - Review of Systems General: Reports: No Symptoms Pulmonary: Reports: No Symptoms Gastrointestinal: Reports: Abdominal Pain (improving per pt) Systems Review Comment:: wants to eat, ngt output minimal; - Patient Data Vitals - Most Recent: Last Vital Signs Temp 98.3 F 02/21/19 09:00 Pulse 72 02/21/19 06:00 Resp 18 02/21/19 09:00 BP 171/97 H 02/21/19 09:00 Pulse Ox 96 02/21/19 09:00 Weight - Most Recent: 177 lb 0.499 oz I&O - Last 24 Hours: Intake & Output 02/20/19 02/21/19 02/21/19 22:59 06:59 14:59 Intake Total 1100 1823 Output Total 1600 2532 25 Balance -500 -709 -25 Lab Results Last 24 Hrs: Laboratory Results - last 24 hr 02/20/19 02/20/19 02/20/19 Range/Units 15:30 15:30 19:45 WBC 19.25 H (4.0-11.0) K/uL RBC 4.82 (4.50-5.90) M/uL Hgb 14.8 (13.0-17.0) g/dL Hct 42.2 (38.0-50.0) % MCV 87.6 (80.0-98.0) fL MCH 30.7 (27.0-32.0) pg MCHC 35.1 (31.0-37.0) g/dL RDW Std Deviation 43.0 (28.0-62.0) fl RDW Coeff of Roe 14 (11.0-15.0) % Plt Count 176 (150-400) K/uL MPV 10.10 (7.40-12.00) fL Neut % (Auto) 96.7 H (48.0-80.0) % Lymph % (Auto) 1.6 L (16.0-40.0) % [place] % (Auto) 1.7 (0.0-15.0) % Eos % (Auto) 0.0 (0.0-7.0) % Baso % (Auto) 0.0 (0.0-1.5) % Neut # (Auto) 18.6 H (1.4-5.7) K/uL Lymph # (Auto) 0.3 L (0.6-2.4) K/uL [place] # (Auto) 0.3 (0.0-0.8) K/uL Eos # (Auto) 0.0 (0.0-0.7) K/uL Baso # (Auto) 0.0 (0.0-0.1) K/uL Nucleated RBC % 0.0 /100WBC Nucleated RBCs # 0 K/uL Sodium 131 L (136-148) mmol/L Potassium 4.4 (3.5-5.1) mmol/L Chloride 100 (98-107) mmol/L Carbon Dioxide 22.7 (21.0-32.0) mmol/L BUN 10 (7.0-18.0) mg/dL Creatinine 0.8 (0.8-1.3) mg/dL Est Cr Clr Drug Dosing TNP Estimated GFR (MDRD) > 60.0 ml/min Glucose 152 H (74-106) mg/dL Calcium 8.1 L (8.5-10.1) mg/dL Total Bilirubin 0.6 (0.2-1.0) mg/dL AST 19 (15-37) IU/L ALT 21 (14-63) IU/L Alkaline Phosphatase 47 (46-116) U/L Total Protein 6.3 L (6.4-8.2) g/dL Albumin 3.1 L (3.4-5.0) g/dL Globulin 3.2 (2.6-4.0) g/dL Albumin/Globulin Ratio 1.0 (0.9-1.6) Urine Opiates Screen POSITIVE (NEGATIVE) Ur Oxycodone Screen NEGATIVE (NEGATIVE) Urine Methadone Screen NEGATIVE (NEGATIVE) Ur Barbiturates Screen NEGATIVE (NEGATIVE) Ur Phencyclidine Scrn NEGATIVE (NEGATIVE) Ur Amphetamine Screen NEGATIVE (NEGATIVE) U Methamphetamines Scrn NEGATIVE (NEGATIVE) U Benzodiazepines Scrn NEGATIVE (NEGATIVE) U Cocaine Metab Screen NEGATIVE (NEGATIVE) U Marijuana (THC) Screen POSITIVE (NEGATIVE) 02/21/19 02/21/19 Range/Units 06:25 06:25 WBC 16.73 H (4.0-11.0) K/uL RBC 5.08 (4.50-5.90) M/uL Hgb 15.5 (13.0-17.0) g/dL Hct 44.8 (38.0-50.0) % MCV 88.2 (80.0-98.0) fL MCH 30.5 (27.0-32.0) pg MCHC 34.6 (31.0-37.0) g/dL RDW Std Deviation 44.3 (28.0-62.0) fl RDW Coeff of Roe 14 (11.0-15.0) % Plt Count 209 (150-400) K/uL MPV 10.30 (7.40-12.00) fL Neut % (Auto) 86.7 H (48.0-80.0) % Lymph % (Auto) 6.9 L (16.0-40.0) % [place] % (Auto) 6.2 (0.0-15.0) % Eos % (Auto) 0.1 (0.0-7.0) % Baso % (Auto) 0.1 (0.0-1.5) % Neut # (Auto) 14.5 H (1.4-5.7) K/uL Lymph # (Auto) 1.2 (0.6-2.4) K/uL [place] # (Auto) 1.0 H (0.0-0.8) K/uL Eos # (Auto) 0.0 (0.0-0.7) K/uL Baso # (Auto) 0.0 (0.0-0.1) K/uL Nucleated RBC % 0.0 /100WBC Nucleated RBCs # 0 K/uL Sodium 133 L (136-148) mmol/L Potassium 4.7 (3.5-5.1) mmol/L Chloride 99 (98-107) mmol/L Carbon Dioxide 24.9 (21.0-32.0) mmol/L BUN 11 (7.0-18.0) mg/dL Creatinine 1.1 (0.8-1.3) mg/dL Est Cr Clr Drug Dosing 98.96 Estimated GFR (MDRD) > 60.0 ml/min Glucose 125 H (74-106) mg/dL Calcium 8.9 (8.5-10.1) mg/dL Total Bilirubin (0.2-1.0) mg/dL AST (15-37) IU/L ALT (14-63) IU/L Alkaline Phosphatase (46-116) U/L Total Protein (6.4-8.2) g/dL Albumin (3.4-5.0) g/dL Globulin (2.6-4.0) g/dL Albumin/Globulin Ratio (0.9-1.6) Urine Opiates Screen (NEGATIVE) Ur Oxycodone Screen (NEGATIVE) Urine Methadone Screen (NEGATIVE) Ur Barbiturates Screen (NEGATIVE) Ur Phencyclidine Scrn (NEGATIVE) Ur Amphetamine Screen (NEGATIVE) U Methamphetamines Scrn (NEGATIVE) U Benzodiazepines Scrn (NEGATIVE) U Cocaine Metab Screen (NEGATIVE) U Marijuana (THC) Screen (NEGATIVE) Sj Results Last 24 Hrs: Microbiology 02/20/19 09:07 Gram Stain - Preliminary Peritoneal Fluid Med Orders - Current: Current Medications Hydromorphone HCl (Dilaudid) 0.5 mg IVPUSH Q1H PRN PRN Reason: Abdominal Pain Pantoprazole Sodium 40 mg/ (Sodium Chloride) 10 mls @ 300 mls/hr IV DAILY [facility] Last Admin: 02/21/19 09:24 Dose: 300 mls/hr Lactated Ringer's (Ringers, Lactated) 1,000 mls @ 150 mls/hr IV ASDIRECTED [facility] Last Admin: 02/21/19 04:37 Dose: 150 mls/hr Cefoxitin Sodium 1 gm/ Premix 50 mls @ 100 mls/hr IV Q6H [facility] Last Admin: 02/21/19 10:07 Dose: 100 mls/hr Lorazepam (Ativan) 1 mg IVPUSH Q4H PRN PRN Reason: Withdrawal Symptoms Lorazepam (Ativan) 0.5 mg IVPUSH Q8H [facility] Last Admin: 02/21/19 10:05 Dose: 0.5 mg Morphine Sulfate (Morphine Sales Counselor 30 Mg In 30 Ml) 0 mg IV ASDIRECTED PRN; Protocol PRN Reason: Pain (severe 7-10) Last Admin: 02/21/19 03:40 Dose: 30 mg Ondansetron HCl (Zofran) 4 mg IVPUSH Q8H PRN PRN Reason: Nausea/Vomiting Last Admin: 02/21/19 07:18 Dose: 4 mg Discontinued Medications Albuterol (Proventil Neb Soln) 2.5 mg NEB ONETIME PRN PRN Reason: Wheezing Atropine Sulfate (Atropine 0.1 Mg/Ml) 0.5 mg IVPUSH ASDIRECTED PRN PRN Reason: Hypo-perfusion Atropine Sulfate (Atropine 0.1 Mg/Ml) 1 mg IVPUSH ASDIRECTED PRN PRN Reason: Hypo-Perfusion Cefazolin Sodium (Ancef) Confirm Administered Dose 1 gm .ROUTE .STK-MED ONE Stop: 02/20/19 09:49 Dexamethasone (Dexamethasone) Confirm Administered Dose 20 mg .ROUTE .STK-MED ONE Stop: 02/20/19 11:57 Dextrose/Water (Dextrose 50% In Water) 50 ml IVPUSH ASDIRECTED PRN PRN Reason: Hypoglycemia Epinephrine HCl (Epinephrine 1:10,000) 1 mg IVPUSH ASDIRECTED PRN PRN Reason: ACLS Guidelines Fentanyl (Sublimaze) Confirm Administered Dose 250 mcg .ROUTE .STK-MED ONE Stop: 02/20/19 07:34 Fentanyl (Sublimaze) 50 mcg IVPUSH Q5M PRN PRN Reason: Pain Hydralazine HCl (Apresoline) 10 mg IVPUSH ONETIME ONE Stop: 02/20/19 13:33 Last Admin: 02/20/19 14:00 Dose: 10 mg Hydralazine HCl (Apresoline) 10 mg IVPUSH ONETIME ONE Stop: 02/20/19 14:01 Last Admin: 02/20/19 15:10 Dose: 10 mg Hydralazine HCl (Apresoline) 10 mg IVPUSH ONETIME ONE Stop: 02/20/19 15:10 Last Admin: 02/20/19 19:36 Dose: Not Given Hydromorphone HCl (Dilaudid) 0.5 mg IVPUSH Q1H PRN PRN Reason: Abdominal Pain Last Admin: 02/20/19 12:50 Dose: 0.5 mg Hydromorphone HCl (Dilaudid) Confirm Administered Dose 2 mg .ROUTE .STK-MED ONE Stop: 02/20/19 09:59 Hydromorphone HCl (Dilaudid) Confirm Administered Dose 2 mg .ROUTE .STK-MED ONE Stop: 02/20/19 12:46 Last Admin: 02/20/19 13:33 Dose: 1 mg Hydromorphone HCl (Dilaudid) Confirm Administered Dose 2 mg .ROUTE .STK-MED ONE Stop: 02/20/19 13:30 Last Admin: 02/20/19 19:36 Dose: Not Given Hydromorphone HCl (Dilaudid) Confirm Administered Dose 2 mg .ROUTE .STK-MED ONE Stop: 02/20/19 15:27 Last Admin: 02/20/19 15:31 Dose: 1 mg Lactated Ringer's (Ringers, Lactated) 1,000 mls @ 125 mls/hr IV ASDIRECTED [facility] Bupivacaine HCl/Epinephrine Bitart (Sensorc Mpf 0.25%-Epi 1:574502) Confirm Administered Dose 30 mls @ as directed .ROUTE .STK-MED ONE Stop: 02/20/19 07:31 Sodium Chloride (Normal Saline) Confirm Administered Dose 20 mls @ as directed .ROUTE .STK-MED ONE Stop: 02/20/19 08:32 Cefoxitin Sodium (Mefoxin In Dextrose,Iso-Osm 1 Gm/50 Ml) Confirm Administered Dose 100 mls @ as directed .ROUTE .STK-MED ONE Stop: 02/20/19 08:41 Acetaminophen (Ofirmev) Confirm Administered Dose 100 mls @ as directed IV .STK- MED ONE Stop: 02/20/19 11:00 Cefoxitin Sodium 1 gm/ Premix 50 mls @ 100 mls/hr IV Q6H [facility] Last Admin: 02/20/19 19:01 Dose: Not Given Labetalol HCl (Normodyne) 20 mg IVPUSH ONETIME ONE; Protocol Stop: 02/20/19 12:32 Last Admin: 02/20/19 13:15 Dose: 20 mg Labetalol HCl (Normodyne) 20 mg IVPUSH ONETIME ONE; Protocol Stop: 02/20/19 13:12 Last Admin: 02/20/19 19:36 Dose: Not Given Lidocaine (Xylocaine-Mpf 2%) Confirm Administered Dose 5 ml .ROUTE .STK-MED ONE Stop: 02/20/19 07:33 Midazolam HCl (Versed 1 Mg/Ml) Confirm Administered Dose 2 mg .ROUTE .STK-MED ONE Stop: 02/20/19 07:34 Naloxone HCl (Narcan) 0.1 mg IVPUSH ASDIRECTED PRN PRN Reason: Respiratory Depression Ondansetron HCl (Zofran) Confirm Administered Dose 4 mg .ROUTE .STK-MED ONE Stop: 02/20/19 11:57 Phenylephrine HCl (Phenylephrine In Ns 100 Mcg/Ml) Confirm Administered Dose 1 mg .ROUTE .STK-MED ONE Stop: 02/20/19 08:41 Propofol (Diprivan 20 Ml) Confirm Administered Dose 400 mg .ROUTE .STK-MED ONE Stop: 02/20/19 07:33 Rocuronium Curran (Zemuron) Confirm Administered Dose 100 mg .ROUTE .STK-MED ONE Stop: 02/20/19 07:33 Rocuronium Curran (Zemuron) Confirm Administered Dose 100 mg .ROUTE .STK-MED ONE Stop: 02/20/19 10:57 Sodium Chloride (Saline Flush) 10 ml FLUSH ASDIRECTED PRN PRN Reason: Keep Vein Open Sodium Chloride (Saline Flush) 2.5 ml FLUSH ASDIRECTED PRN PRN Reason: Keep Vein Open Sodium Chloride (Normal Saline) 10 ml IV ASDIRECTED PRN PRN Reason: IV Use Succinylcholine Chloride (Succinylcholine Chloride) Confirm Administered Dose 200 mg .ROUTE .STK-MED ONE Stop: 02/20/19 07:33 Sugammadex Sodium (Bridion) Confirm Administered Dose 200 mg .ROUTE .STK-MED ONE Stop: 02/20/19 11:00 - Exam Wound/Incisions: Dressing Dry and Intact Lungs: Clear to Auscultation GI/Abdominal Exam: No Distention (with guarding) - Problem List Review Problem List Initiated/Reviewed/Updated: Yes - My Orders Last 24 Hours: Active Orders 24 hr Category Date Time Status Admission Status [Patient Status] [ADT] Routine ADT 02/20/19 12:22 Active Transfer Patient (Change bed) [ADT] ONETIME ADT 02/20/19 14:28 Ordered Antiembolic Devices [RC] PER UNIT ROUTINE Care 02/20/19 16:07 Active Capnography Monitoring [RT End Tidal CO2 Monitoring] [ Care 02/20/19 14:39 Active RC] Q4H Communication Order [RC] ROUTINE Care 02/20/19 12:24 Active Communication Order [RC] ROUTINE Care 02/20/19 12:32 Active Communication Order [RC] STAT Care 02/20/19 12:25 Active NG [Gastrointestinal Tube Mgmt] [RC] Q4H Care 02/20/19 12:23 Active Notify Provider Consults [RC] ASDIRECTED Care 02/20/19 13:14 Active Notify Provider [RC] PRN Care 02/20/19 12:25 Active Overnight Pulse Oximetry [RC] Q4H Care 02/20/19 14:39 Active Pulse Oximetry [RC] CONTINUOUS Care 02/20/19 12:25 Active Consult to Physician [CONS] Routine Cons 02/20/19 13:12 Active NPO Now [Nothing per Oral Now Diet] [DIET] Diet 02/20/19 Dinner Active HYDROmorphone [Dilaudid] Med 02/20/19 13:31 Active 0.5 mg IVPUSH Q1H PRN LORazepam [Ativan] Med 02/21/19 10:00 Active 0.5 mg IVPUSH Q8H LORazepam [Ativan] Med 02/20/19 15:40 Active 1 mg IVPUSH Q4H PRN Lactated Ringers [Ringers, Lactated] 1,000 ml Med 02/20/19 12:45 Active IV ASDIRECTED Morphine PF [Morphine INSTRUCTIONAL WRITER 30 MG in 30 ML] Med 02/20/19 12:25 Active See Protocol IV ASDIRECTED PRN Ondansetron [Zofran] Med 02/20/19 12:30 Active 4 mg IVPUSH Q8H PRN Pantoprazole [ProTONIX IV] 40 mg Med 02/21/19 09:00 Active Sodium Chloride 0.9% [Normal Saline] 10 ml IV DAILY cefOXitin [Mefoxin in Dextrose,Iso-Osm 1 GM/50 ML] 1 gm Med 02/20/19 16:30 Active Premix Bag 1 bag IV Q6H Medication Discontinuation Instructions [OM.PC] Stat Oth 02/20/19 12:25 Ordered Pulse Oximetry Continuous Monitoring [OM.PC] Routine Oth 02/20/19 14:39 Ordered SCD [Sequential Compression Device] [OM.PC] Routine Oth 02/20/19 16:07 Ordered Medication Orders Hydromorphone HCl (Dilaudid) 0.5 mg IVPUSH Q1H PRN PRN Reason: Abdominal Pain Pantoprazole Sodium 40 mg/ (Sodium Chloride) 10 mls @ 300 mls/hr IV DAILY [facility] Last Admin: 02/21/19 09:24 Dose: 300 mls/hr Lactated Ringer's (Ringers, Lactated) 1,000 mls @ 150 mls/hr IV ASDIRECTED [facility] Last Admin: 02/21/19 04:37 Dose: 150 mls/hr Infusion: 02/21/19 04:37 Dose: 150 mls/hr Admin: 02/20/19 22:30 Dose: 150 mls/hr Infusion: 02/20/19 22:30 Dose: 150 mls/hr Admin: 02/20/19 16:20 Dose: 150 mls/hr Cefoxitin Sodium 1 gm/ Premix 50 mls @ 100 mls/hr IV Q6H [facility] Last Admin: 02/21/19 10:07 Dose: 100 mls/hr Infusion: 02/21/19 05:07 Dose: 100 mls/hr Admin: 02/21/19 04:37 Dose: 100 mls/hr Infusion: 02/20/19 22:59 Dose: 100 mls/hr Admin: 02/20/19 22:29 Dose: 100 mls/hr Infusion: 02/20/19 17:55 Dose: 100 mls/hr Admin: 02/20/19 17:25 Dose: 100 mls/hr Lorazepam (Ativan) 1 mg IVPUSH Q4H PRN PRN Reason: Withdrawal Symptoms Lorazepam (Ativan) 0.5 mg IVPUSH Q8H [facility] Last Admin: 02/21/19 10:05 Dose: 0.5 mg Morphine Sulfate (Morphine Sales Counselor 30 Mg In 30 Ml) 0 mg IV ASDIRECTED PRN; Protocol PRN Reason: Pain (severe 7-10) Last Admin: 02/21/19 03:40 Dose: 30 mg Admin: 02/20/19 15:50 Dose: 23.2 mg Ondansetron HCl (Zofran) 4 mg IVPUSH Q8H PRN PRN Reason: Nausea/Vomiting Last Admin: 02/21/19 07:18 Dose: 4 mg - Assessment Assessment (Free Text/Narrative):: progressing well after surgery; pt remarked diffuse abd pain resolving, happy about it. but still co, probably incision pain/spasm; will add ativan for incision spasm. pt on INSTRUCTIONAL WRITER morphine 25 mg max a day; will likely dial down in a day or two; hD stable, ok to transfer to telemetry; continue ngt till bowel function return; pt has peritonitis and full of pus, would expect slow return; polina Lei this am, encourage ambulation, med consult for withdrawal risk - Plan Plan (Free Text/Narrative):: progressing well after surgery; pt remarked diffuse abd pain resolving, happy about it. but still co, probably incision pain/spasm; will add ativan for incision spasm. pt on INSTRUCTIONAL WRITER morphine 25 mg max a day; will likely dial down in a day or two; hD stable, ok to transfer to telemetry; continue ngt till bowel function return; pt has peritonitis and full of pus, would expect slow return; polina Lei this am, encourage ambulation, med consult for withdrawal risk
--- NOTE | 2019-02-21 12:09 | PCM48HPAN ---
Post Anesthesia Note - EVALUATION WITHIN 48HRS OF ANESTHETIC Vital Signs in Normal Range: Yes Patient Participated in Evaluation: Yes Respiratory Function Stable: Yes Airway Patent: Yes Cardiovascular Function Stable: Yes Hydration Status Stable: Yes Pain Control Satisfactory: Yes Nausea and Vomiting Control Satisfactory: Yes Mental Status Recovered: Yes Vital Signs: Last Vital Signs Temp 98.3 F 02/21/19 09:00 Pulse 72 02/21/19 06:00 Resp 16 02/21/19 11:00 BP 171/97 H 02/21/19 09:00 Pulse Ox 95 02/21/19 11:00 - COMMENTS/OBSERVATIONS Free Text/Narrative:: Medicine team is following patients HTN.
[2019-02-21] MEDS ORDERED: hydrALAZINE 20 MG/ML SDV IVPUSH ONE (15:55)
[2019-02-21] MEDS: Nicotine 14 MG/24 Hr Patch TRDERM SCH (19:02)
--- NOTE | 2019-02-21 19:42 | PN ---
THC Physician - Brief Progress [id number]/19/2019 19:41[facility] Anupama mathew, CEDRIC - RICARDO (STEPHANI) - JACQUELYN BRENNANDate of Service 02/21/2019 19:41HPI/Events of N ote The patient today is MedSurg overflow.His pressure was high and requested PRN medication for bloo d pressureI placed hydralazine as needed.Interventions Minor-Communication with other healthcare prov iders and/or family, Routine modifications to care plan (e.g. PRN medications for pain, fever)Electro nically Signed by: SHIELA MIRANDA) on 02/21/2019 19:42
[2019-02-21] MEDS ORDERED: diphenhydrAMINE 25 MG Cap PO PRN (20:54)
[2019-02-21] MEDS ORDERED: diphenhydrAMINE 50 MG/ML SDV IVPUSH PRN (20:54)
[2019-02-21] MEDS ORDERED: Naloxone 0.4 MG/ML Syringe IVPUSH PRN (20:54)
[2019-02-21] MEDS ORDERED: Ondansetron 4 MG/2 ML SDV IVPUSH PRN (20:54)
[2019-02-21] MEDS ORDERED: fentaNYL/Normal Saline 300 MCG/30 ML PCA Vial IV SCH (20:56)
[2019-02-21] MEDS: HYDROmorphone 2 MG/ML Syringe IVPUSH PRN (23:24)
[2019-02-22] MEDS ORDERED: Phenol 1.4% Oral Spray 177 ML Bottle MUCMEM PRN (02:32)
[2019-02-22] MEDS: Lactated Ringers 1,000 ML IV SCH ×3 (03:57→20:44)
[2019-02-22] MEDS: HYDROmorphone 2 MG/ML Syringe IVPUSH PRN ×5 (03:58→21:47)
[2019-02-22] MEDS: cefOXitin 1 GM in Premix Bag 1 BAG IV SCH ×4 (04:18→21:48)
[2019-02-22] MEDS: LORazepam 2 MG/ML SDV IVPUSH SCH ×2 (06:56→19:35)
[2019-02-22 07:07] LABS: BLOOD UREA NITROGEN,BUN 11 mg/dL (7.0-18.0); CARBON DIOXIDE,CO2 25.3 mmol/L (21.0-32.0); CHLORIDE,CL 95 mmol/L (98-107); GLUCOSE RANDOM 104 mg/dL (74-106); POTASSIUM,K 4.2 mmol/L (3.5-5.1); SODIUM,NA 130 mmol/L (136-148)
--- NOTE | 2019-02-22 08:12 | PCM.CONSN ---
- General Info Date of Service: 02/22/19 Subjective Update: Patient reports he feels ok. Complains of abdominal pain and sore throat from NG tube. Last night ran out of morphine for [employer], no medications available for [employer] pump and he was switched to Dilaudid IV. He stated that helped him sleep. His BP and HR increased after switching medications. He was up walking yesterday. Was given 1 dose of Ativan at 230 AM for withdrawal symptoms but no note from nursing describing withdrawal symptoms. - Review of Systems General: Reports: No Symptoms HEENT: Reports: Sore Throat Pulmonary: Reports: No Symptoms Cardiovascular: Reports: No Symptoms Gastrointestinal: Reports: Abdominal Pain Genitourinary: Reports: No Symptoms Musculoskeletal: Reports: No Symptoms Skin: Reports: No Symptoms Neurological: Reports: No Symptoms Psychiatric: Reports: No Symptoms - Patient Data Vitals - Most Recent: Last Vital Signs Temp 97.6 F 02/22/19 07:41 Pulse 98 02/22/19 07:41 Resp 16 02/22/19 07:41 BP 155/103 H 02/22/19 07:41 Pulse Ox 95 02/22/19 07:41 Weight - Most Recent: 76.294 kg I&O - Last 24 Hours: Intake & Output 02/21/19 02/22/19 02/22/19 22:59 06:59 14:59 Intake Total 1050 2200 Output Total 1215 1015 Balance -165 1185 Lab Results Last 24 Hours: Laboratory Results - last 24 hr 02/21/19 02/21/19 02/22/19 Range/Units 11:41 18:25 05:56 WBC 11.85 H (4.0-11.0) K/uL RBC 4.41 L (4.50-5.90) M/uL Hgb 13.4 (13.0-17.0) g/dL Hct 39.0 (38.0-50.0) % MCV 88.4 (80.0-98.0) fL MCH 30.4 (27.0-32.0) pg MCHC 34.4 (31.0-37.0) g/dL RDW Std Deviation 44.0 (28.0-62.0) fl RDW Coeff of Roe 14 (11.0-15.0) % Plt Count 201 (150-400) K/uL MPV 10.10 (7.40-12.00) fL Neut % (Auto) 81.3 H (48.0-80.0) % Lymph % (Auto) 8.4 L (16.0-40.0) % [place] % (Auto) 9.5 (0.0-15.0) % Eos % (Auto) 0.7 (0.0-7.0) % Baso % (Auto) 0.1 (0.0-1.5) % Neut # (Auto) 9.6 H (1.4-5.7) K/uL Lymph # (Auto) 1.0 (0.6-2.4) K/uL [place] # (Auto) 1.1 H (0.0-0.8) K/uL Eos # (Auto) 0.1 (0.0-0.7) K/uL Baso # (Auto) 0.0 (0.0-0.1) K/uL Nucleated RBC % 0.0 /100WBC Nucleated RBCs # 0 K/uL Sodium (136-148) mmol/L Potassium (3.5-5.1) mmol/L Chloride (98-107) mmol/L Carbon Dioxide (21.0-32.0) mmol/L BUN (7.0-18.0) mg/dL Creatinine (0.8-1.3) mg/dL Est Cr Clr Drug Dosing mL/min Estimated GFR (MDRD) ml/min Glucose (74-106) mg/dL POC Glucose 97 94 (60-110) mg/dL Calcium (8.5-10.1) mg/dL 02/22/19 Range/Units 05:56 WBC (4.0-11.0) K/uL RBC (4.50-5.90) M/uL Hgb (13.0-17.0) g/dL Hct (38.0-50.0) % MCV (80.0-98.0) fL MCH (27.0-32.0) pg MCHC (31.0-37.0) g/dL RDW Std Deviation (28.0-62.0) fl RDW Coeff of Roe (11.0-15.0) % Plt Count (150-400) K/uL MPV (7.40-12.00) fL Neut % (Auto) (48.0-80.0) % Lymph % (Auto) (16.0-40.0) % [place] % (Auto) (0.0-15.0) % Eos % (Auto) (0.0-7.0) % Baso % (Auto) (0.0-1.5) % Neut # (Auto) (1.4-5.7) K/uL Lymph # (Auto) (0.6-2.4) K/uL [place] # (Auto) (0.0-0.8) K/uL Eos # (Auto) (0.0-0.7) K/uL Baso # (Auto) (0.0-0.1) K/uL Nucleated RBC % /100WBC Nucleated RBCs # K/uL Sodium 130 L (136-148) mmol/L Potassium 4.2 (3.5-5.1) mmol/L Chloride 95 L (98-107) mmol/L Carbon Dioxide 25.3 (21.0-32.0) mmol/L BUN 11 (7.0-18.0) mg/dL Creatinine 0.9 (0.8-1.3) mg/dL Est Cr Clr Drug Dosing 118.92 mL/min Estimated GFR (MDRD) > 60.0 ml/min Glucose 104 (74-106) mg/dL POC Glucose (60-110) mg/dL Calcium 8.5 (8.5-10.1) mg/dL Sj Results Last 24 Hours: Microbiology 02/20/19 09:07 Gram Stain - Preliminary Peritoneal Fluid Wound Culture - Preliminary NO GROWTH AFTER 1 DAY Med Orders - Current: Current Medications Hydromorphone HCl (Dilaudid) 2 mg IVPUSH Q4H PRN PRN Reason: Pain Last Admin: 02/22/19 03:58 Dose: 2 mg Pantoprazole Sodium 40 mg/ (Sodium Chloride) 10 mls @ 300 mls/hr IV DAILY UMA Last Admin: 02/21/19 09:24 Dose: 300 mls/hr Cefoxitin Sodium 1 gm/ Premix 50 mls @ 100 mls/hr IV Q6H UMA Last Admin: 02/22/19 04:18 Dose: 100 mls/hr Lactated Ringer's (Ringers, Lactated) 1,000 mls @ 125 mls/hr IV ASDIRECTED [facility] Last Admin: 02/22/19 03:57 Dose: 125 mls/hr Lorazepam (Ativan) 1 mg IVPUSH Q4H PRN PRN Reason: Withdrawal Symptoms Last Admin: 02/22/19 02:25 Dose: 1 mg Lorazepam (Ativan) 0.5 mg IVPUSH Q12H [facility] Last Admin: 02/22/19 06:56 Dose: 0.5 mg Nicotine (Habitrol) 14 mg TRDERM DAILY [facility] Last Admin: 02/21/19 19:02 Dose: 14 mg Ondansetron HCl (Zofran) 4 mg IVPUSH Q8H PRN PRN Reason: Nausea/Vomiting Last Admin: 02/21/19 23:30 Dose: 4 mg Phenol/Menthol (Chloraseptic Throat [place]) 1 ml MUCMEM Q2H PRN PRN Reason: Sore Throat Last Admin: 02/22/19 03:58 Dose: 1 spray Discontinued Medications Albuterol (Proventil Neb Soln) 2.5 mg NEB ONETIME PRN PRN Reason: Wheezing Atropine Sulfate (Atropine 0.1 Mg/Ml) 0.5 mg IVPUSH ASDIRECTED PRN PRN Reason: Hypo-perfusion Atropine Sulfate (Atropine 0.1 Mg/Ml) 1 mg IVPUSH ASDIRECTED PRN PRN Reason: Hypo-Perfusion Cefazolin Sodium (Ancef) Confirm Administered Dose 1 gm .ROUTE .STK-MED ONE Stop: 02/20/19 09:49 Dexamethasone (Dexamethasone) Confirm Administered Dose 20 mg .ROUTE .STK-MED ONE Stop: 02/20/19 11:57 Dextrose/Water (Dextrose 50% In Water) 50 ml IVPUSH ASDIRECTED PRN PRN Reason: Hypoglycemia Diphenhydramine HCl (Benadryl) 25 mg IVPUSH Q6H PRN PRN Reason: Itching Diphenhydramine HCl (Benadryl) 25 mg PO Q6H PRN PRN Reason: Itching Epinephrine HCl (Epinephrine 1:10,000) 1 mg IVPUSH ASDIRECTED PRN PRN Reason: ACLS Guidelines Fentanyl (Sublimaze) Confirm Administered Dose 250 mcg .ROUTE .STK-MED ONE Stop: 02/20/19 07:34 Fentanyl (Sublimaze) 50 mcg IVPUSH Q5M PRN PRN Reason: Pain Fentanyl Citrate (Fentanyl In Ns 300 Mcg/30 Ml [employer]) 0 mcg IV ASDIRECTED UMA; Protocol Hydralazine HCl (Apresoline) 10 mg IVPUSH ONETIME ONE Stop: 02/20/19 13:33 Last Admin: 02/20/19 14:00 Dose: 10 mg Hydralazine HCl (Apresoline) 10 mg IVPUSH ONETIME ONE Stop: 02/20/19 14:01 Last Admin: 02/20/19 15:10 Dose: 10 mg Hydralazine HCl (Apresoline) 10 mg IVPUSH ONETIME ONE Stop: 02/20/19 15:10 Last Admin: 02/20/19 19:36 Dose: Not Given Hydralazine HCl (Apresoline) 10 mg IVPUSH ONETIME ONE Stop: 02/21/19 15:56 Last Admin: 02/21/19 16:07 Dose: 10 mg Hydromorphone HCl (Dilaudid) 0.5 mg IVPUSH Q1H PRN PRN Reason: Abdominal Pain Last Admin: 02/20/19 12:50 Dose: 0.5 mg Hydromorphone HCl (Dilaudid) Confirm Administered Dose 2 mg .ROUTE .STK-MED ONE Stop: 02/20/19 09:59 Hydromorphone HCl (Dilaudid) Confirm Administered Dose 2 mg .ROUTE .STK-MED ONE Stop: 02/20/19 12:46 Last Admin: 02/20/19 13:33 Dose: 1 mg Hydromorphone HCl (Dilaudid) 0.5 mg IVPUSH Q1H PRN PRN Reason: Abdominal Pain Hydromorphone HCl (Dilaudid) Confirm Administered Dose 2 mg .ROUTE .STK-MED ONE Stop: 02/20/19 13:30 Last Admin: 02/20/19 19:36 Dose: Not Given Hydromorphone HCl (Dilaudid) Confirm Administered Dose 2 mg .ROUTE .STK-MED ONE Stop: 02/20/19 15:27 Last Admin: 02/20/19 15:31 Dose: 1 mg Lactated Ringer's (Ringers, Lactated) 1,000 mls @ 125 mls/hr IV ASDIRECTED UMA Bupivacaine HCl/Epinephrine Bitart (Sensorc Mpf 0.25%-Epi [id number]) Confirm Administered Dose 30 mls @ as directed .ROUTE .ST-MED ONE Stop: 02/20/19 07:31 Sodium Chloride (Normal Saline) Confirm Administered Dose 20 mls @ as directed .ROUTE .STK-MED ONE Stop: 02/20/19 08:32 Cefoxitin Sodium (Mefoxin In Dextrose,Iso-Osm 1 Gm/50 Ml) Confirm Administered Dose 100 mls @ as directed .ROUTE .STK-MED ONE Stop: 02/20/19 08:41 Acetaminophen (Ofirmev) Confirm Administered Dose 100 mls @ as directed IV .STK- MED ONE Stop: 02/20/19 11:00 Cefoxitin Sodium 1 gm/ Premix 50 mls @ 100 mls/hr IV Q6H [facility] Last Admin: 02/20/19 19:01 Dose: Not Given Lactated Ringer's (Ringers, Lactated) 1,000 mls @ 150 mls/hr IV ASDIRECTED UMA Last Admin: 02/21/19 19:31 Dose: 150 mls/hr Labetalol HCl (Normodyne) 20 mg IVPUSH ONETIME ONE; Protocol Stop: 02/20/19 12:32 Last Admin: 02/20/19 13:15 Dose: 20 mg Labetalol HCl (Normodyne) 20 mg IVPUSH ONETIME ONE; Protocol Stop: 02/20/19 13:12 Last Admin: 02/20/19 19:36 Dose: Not Given Lidocaine (Xylocaine-Mpf 2%) Confirm Administered Dose 5 ml .ROUTE .ST-MED ONE Stop: 02/20/19 07:33 Lorazepam (Ativan) 0.5 mg IVPUSH Q8H [facility] Last Admin: 02/21/19 19:02 Dose: 0.5 mg Midazolam HCl (Versed 1 Mg/Ml) Confirm Administered Dose 2 mg .ROUTE .STK-MED ONE Stop: 02/20/19 07:34 Morphine Sulfate (Morphine [employer] 30 Mg In 30 Ml) 0 mg IV ASDIRECTED PRN; Protocol PRN Reason: Pain (severe 7-10) Last Admin: 02/21/19 03:40 Dose: 30 mg Naloxone HCl (Narcan) 0.1 mg IVPUSH ASDIRECTED PRN PRN Reason: Respiratory Depression Naloxone HCl (Narcan) 0.04 mg IVPUSH Q3M PRN PRN Reason: Respiratory Depression Ondansetron HCl (Zofran) Confirm Administered Dose 4 mg .ROUTE .STK-MED ONE Stop: 02/20/19 11:57 Ondansetron HCl (Zofran) 4 mg IVPUSH Q6H PRN PRN Reason: Nausea/Vomiting Phenylephrine HCl (Phenylephrine In Ns 100 Mcg/Ml) Confirm Administered Dose 1 mg .ROUTE .STK-MED ONE Stop: 02/20/19 08:41 Propofol (Diprivan 20 Ml) Confirm Administered Dose 400 mg .ROUTE .STK-MED ONE Stop: 02/20/19 07:33 Rocuronium [place] (Zemuron) Confirm Administered Dose 100 mg .ROUTE .STK-MED ONE Stop: 02/20/19 07:33 Rocuronium [place] (Zemuron) Confirm Administered Dose 100 mg .ROUTE .STK-MED ONE Stop: 02/20/19 10:57 Sodium Chloride (Saline Flush) 10 ml FLUSH ASDIRECTED PRN PRN Reason: Keep Vein Open Sodium Chloride (Saline Flush) 2.5 ml FLUSH ASDIRECTED PRN PRN Reason: Keep Vein Open Sodium Chloride (Normal Saline) 10 ml IV ASDIRECTED PRN PRN Reason: IV Use Succinylcholine Chloride (Succinylcholine Chloride) Confirm Administered Dose 200 mg .ROUTE .STK-MED ONE Stop: 02/20/19 07:33 Sugammadex Sodium (Bridion) Confirm Administered Dose 200 mg .ROUTE .STK-MED ONE Stop: 02/20/19 11:00 - Exam General: Alert, Oriented, Cooperative Lungs: Clear to Auscultation, Normal Respiratory Effort Cardiovascular: Regular Rate, Regular Rhythm GI/Abdominal Exam: No: Normal Bowel Sounds Extremities: No Pedal Edema Skin: Warm, Dry Neurological: No New Focal Deficit Psy/Mental Status: Alert, Normal Affect, Normal Mood Consult PN Assessment/Plan Problem List Initiated/Reviewed/Updated: Yes My Orders Last 24 Hours: My Active Orders 02/21/19 19:00 Nicotine [Habitrol] 14 mg TRDERM DAILY 02/23/19 05:11 BASIC METABOLIC PANEL,BMP [CHEM] AM CBC WITH AUTO DIFF [HEME] AM 02/24/19 05:11 BASIC METABOLIC PANEL,BMP [CHEM] AM CBC WITH AUTO DIFF [HEME] AM Plan: Medical Team Consult: 1. S/P exploratory laparotomy and appendectomy- orders per primary team--surgery , on Cefoxitin, NPO with NG placed. Orders per primary team 2.Hx of meth and marijuana use, concern about withdrawal- UDS positive for THC but not meth. Will order prn Ativan for withdrawal symptoms- received dose of Ativan at 230 AM for withdrawal symptoms but no note from nursing describing the symptoms. 3. Post- operative HTN- ensure adequate pain control, patient reports pain not adequately controlled, IV Dilaudid better during the night but patient hasn't been up moving. pain orders per primary team. Continue to monitor blood pressure. DVT prophylaxis- medical team recommends DVT prophylaxis-will leave decision to primary team
[2019-02-22] MEDS: Nicotine 14 MG/24 Hr Patch TRDERM SCH (08:17)
[2019-02-22] MEDS: Pantoprazole 40 MG in Sodium Chloride 0.9% 10 ML IV SCH (08:18)
[2019-02-22] MEDS: Ondansetron 4 MG/2 ML SDV IVPUSH PRN ×2 (08:30→18:13)
--- NOTE | 2019-02-22 12:35 | PCM.SURGPN ---
- General Info Date of Service: 02/22/19 POD#: 2 Admission Diagnosis/Problem: Appendicitis Functional Status: Reports: Pain Controlled (no flatus, pain control better w 2 mg dilaudid q4 prn pain) - Review of Systems Gastrointestinal: Reports: No Symptoms - Patient Data Vitals - Most Recent: Last Vital Signs Temp 97.6 F 02/22/19 07:41 Pulse 98 02/22/19 07:41 Resp 16 02/22/19 07:41 BP 155/103 H 02/22/19 07:41 Pulse Ox 95 02/22/19 08:00 Weight - Most Recent: 168 lb 3.2 oz I&O - Last 24 Hours: Intake & Output 02/21/19 02/22/19 02/22/19 22:59 06:59 14:59 Intake Total 1050 2200 Output Total 1215 1015 Balance -165 1185 Lab Results Last 24 Hrs: Laboratory Results - last 24 hr 02/21/19 02/21/19 02/22/19 Range/Units 11:41 18:25 05:56 WBC 11.85 H (4.0-11.0) K/uL RBC 4.41 L (4.50-5.90) M/uL Hgb 13.4 (13.0-17.0) g/dL Hct 39.0 (38.0-50.0) % MCV 88.4 (80.0-98.0) fL MCH 30.4 (27.0-32.0) pg MCHC 34.4 (31.0-37.0) g/dL RDW Std Deviation 44.0 (28.0-62.0) fl RDW Coeff of Roe 14 (11.0-15.0) % Plt Count 201 (150-400) K/uL MPV 10.10 (7.40-12.00) fL Neut % (Auto) 81.3 H (48.0-80.0) % Lymph % (Auto) 8.4 L (16.0-40.0) % [place] % (Auto) 9.5 (0.0-15.0) % Eos % (Auto) 0.7 (0.0-7.0) % Baso % (Auto) 0.1 (0.0-1.5) % Neut # (Auto) 9.6 H (1.4-5.7) K/uL Lymph # (Auto) 1.0 (0.6-2.4) K/uL [place] # (Auto) 1.1 H (0.0-0.8) K/uL Eos # (Auto) 0.1 (0.0-0.7) K/uL Baso # (Auto) 0.0 (0.0-0.1) K/uL Nucleated RBC % 0.0 /100WBC Nucleated RBCs # 0 K/uL Sodium (136-148) mmol/L Potassium (3.5-5.1) mmol/L Chloride (98-107) mmol/L Carbon Dioxide (21.0-32.0) mmol/L BUN (7.0-18.0) mg/dL Creatinine (0.8-1.3) mg/dL Est Cr Clr Drug Dosing mL/min Estimated GFR (MDRD) ml/min Glucose (74-106) mg/dL POC Glucose 97 94 (60-110) mg/dL Calcium (8.5-10.1) mg/dL 02/22/19 Range/Units 05:56 WBC (4.0-11.0) K/uL RBC (4.50-5.90) M/uL Hgb (13.0-17.0) g/dL Hct (38.0-50.0) % MCV (80.0-98.0) fL MCH (27.0-32.0) pg MCHC (31.0-37.0) g/dL RDW Std Deviation (28.0-62.0) fl RDW Coeff of Roe (11.0-15.0) % Plt Count (150-400) K/uL MPV (7.40-12.00) fL Neut % (Auto) (48.0-80.0) % Lymph % (Auto) (16.0-40.0) % [place] % (Auto) (0.0-15.0) % Eos % (Auto) (0.0-7.0) % Baso % (Auto) (0.0-1.5) % Neut # (Auto) (1.4-5.7) K/uL Lymph # (Auto) (0.6-2.4) K/uL [place] # (Auto) (0.0-0.8) K/uL Eos # (Auto) (0.0-0.7) K/uL Baso # (Auto) (0.0-0.1) K/uL Nucleated RBC % /100WBC Nucleated RBCs # K/uL Sodium 130 L (136-148) mmol/L Potassium 4.2 (3.5-5.1) mmol/L Chloride 95 L (98-107) mmol/L Carbon Dioxide 25.3 (21.0-32.0) mmol/L BUN 11 (7.0-18.0) mg/dL Creatinine 0.9 (0.8-1.3) mg/dL Est Cr Clr Drug Dosing 118.92 mL/min Estimated GFR (MDRD) > 60.0 ml/min Glucose 104 (74-106) mg/dL POC Glucose (60-110) mg/dL Calcium 8.5 (8.5-10.1) mg/dL Sj Results Last 24 Hrs: Microbiology 02/20/19 09:07 Gram Stain - Preliminary Peritoneal Fluid Wound Culture - Preliminary NO GROWTH AFTER 2 DAYS Anaerobic Culture - Preliminary NO GROWTH AFTER 2 DAYS Med Orders - Current: Current Medications Hydromorphone HCl (Dilaudid) 2 mg IVPUSH Q4H PRN PRN Reason: Pain Last Admin: 02/22/19 08:57 Dose: 2 mg Pantoprazole Sodium 40 mg/ (Sodium Chloride) 10 mls @ 300 mls/hr IV DAILY [facility] Last Admin: 02/22/19 08:18 Dose: 300 mls/hr Cefoxitin Sodium 1 gm/ Premix 50 mls @ 100 mls/hr IV Q6H [facility] Last Admin: 02/22/19 09:47 Dose: 100 mls/hr Lactated Ringer's (Ringers, Lactated) 1,000 mls @ 125 mls/hr IV ASDIRECTED [facility] Last Admin: 02/22/19 12:13 Dose: 125 mls/hr Lorazepam (Ativan) 1 mg IVPUSH Q4H PRN PRN Reason: Withdrawal Symptoms Last Admin: 02/22/19 02:25 Dose: 1 mg Lorazepam (Ativan) 0.5 mg IVPUSH Q12H [facility] Last Admin: 02/22/19 06:56 Dose: 0.5 mg Nicotine (Habitrol) 14 mg TRDERM DAILY [facility] Last Admin: 02/22/19 08:17 Dose: 14 mg Ondansetron HCl (Zofran) 4 mg IVPUSH Q8H PRN PRN Reason: Nausea/Vomiting Last Admin: 02/22/19 08:30 Dose: 4 mg Phenol/Menthol (Chloraseptic Throat [place]) 1 ml MUCMEM Q2H PRN PRN Reason: Sore Throat Last Admin: 02/22/19 03:58 Dose: 1 spray Discontinued Medications Albuterol (Proventil Neb Soln) 2.5 mg NEB ONETIME PRN PRN Reason: Wheezing Atropine Sulfate (Atropine 0.1 Mg/Ml) 0.5 mg IVPUSH ASDIRECTED PRN PRN Reason: Hypo-perfusion Atropine Sulfate (Atropine 0.1 Mg/Ml) 1 mg IVPUSH ASDIRECTED PRN PRN Reason: Hypo-Perfusion Cefazolin Sodium (Ancef) Confirm Administered Dose 1 gm .ROUTE .STK-MED ONE Stop: 02/20/19 09:49 Dexamethasone (Dexamethasone) Confirm Administered Dose 20 mg .ROUTE .STK-MED ONE Stop: 02/20/19 11:57 Dextrose/Water (Dextrose 50% In Water) 50 ml IVPUSH ASDIRECTED PRN PRN Reason: Hypoglycemia Diphenhydramine HCl (Benadryl) 25 mg IVPUSH Q6H PRN PRN Reason: Itching Diphenhydramine HCl (Benadryl) 25 mg PO Q6H PRN PRN Reason: Itching Epinephrine HCl (Epinephrine 1:10,000) 1 mg IVPUSH ASDIRECTED PRN PRN Reason: ACLS Guidelines Fentanyl (Sublimaze) Confirm Administered Dose 250 mcg .ROUTE .STK-MED ONE Stop: 02/20/19 07:34 Fentanyl (Sublimaze) 50 mcg IVPUSH Q5M PRN PRN Reason: Pain Fentanyl Citrate (Fentanyl In Ns 300 Mcg/30 Ml Trade Analyst) 0 mcg IV ASDIRECTED [facility]; Protocol Hydralazine HCl (Apresoline) 10 mg IVPUSH ONETIME ONE Stop: 02/20/19 13:33 Last Admin: 02/20/19 14:00 Dose: 10 mg Hydralazine HCl (Apresoline) 10 mg IVPUSH ONETIME ONE Stop: 02/20/19 14:01 Last Admin: 02/20/19 15:10 Dose: 10 mg Hydralazine HCl (Apresoline) 10 mg IVPUSH ONETIME ONE Stop: 02/20/19 15:10 Last Admin: 02/20/19 19:36 Dose: Not Given Hydralazine HCl (Apresoline) 10 mg IVPUSH ONETIME ONE Stop: 02/21/19 15:56 Last Admin: 02/21/19 16:07 Dose: 10 mg Hydromorphone HCl (Dilaudid) 0.5 mg IVPUSH Q1H PRN PRN Reason: Abdominal Pain Last Admin: 02/20/19 12:50 Dose: 0.5 mg Hydromorphone HCl (Dilaudid) Confirm Administered Dose 2 mg .ROUTE .STK-MED ONE Stop: 02/20/19 09:59 Hydromorphone HCl (Dilaudid) Confirm Administered Dose 2 mg .ROUTE .STK-MED ONE Stop: 02/20/19 12:46 Last Admin: 02/20/19 13:33 Dose: 1 mg Hydromorphone HCl (Dilaudid) 0.5 mg IVPUSH Q1H PRN PRN Reason: Abdominal Pain Hydromorphone HCl (Dilaudid) Confirm Administered Dose 2 mg .ROUTE .STK-MED ONE Stop: 02/20/19 13:30 Last Admin: 02/20/19 19:36 Dose: Not Given Hydromorphone HCl (Dilaudid) Confirm Administered Dose 2 mg .ROUTE .STK-MED ONE Stop: 02/20/19 15:27 Last Admin: 02/20/19 15:31 Dose: 1 mg Lactated Ringer's (Ringers, Lactated) 1,000 mls @ 125 mls/hr IV ASDIRECTED [facility] Bupivacaine HCl/Epinephrine Bitart (Sensorc Mpf 0.25%-Epi [id number]) Confirm Administered Dose 30 mls @ as directed .ROUTE .STK-MED ONE Stop: 02/20/19 07:31 Sodium Chloride (Normal Saline) Confirm Administered Dose 20 mls @ as directed .ROUTE .STK-MED ONE Stop: 02/20/19 08:32 Cefoxitin Sodium (Mefoxin In Dextrose,Iso-Osm 1 Gm/50 Ml) Confirm Administered Dose 100 mls @ as directed .ROUTE .STK-MED ONE Stop: 02/20/19 08:41 Acetaminophen (Ofirmev) Confirm Administered Dose 100 mls @ as directed IV .STK- MED ONE Stop: 02/20/19 11:00 Cefoxitin Sodium 1 gm/ Premix 50 mls @ 100 mls/hr IV Q6H [facility] Last Admin: 02/20/19 19:01 Dose: Not Given Lactated Ringer's (Ringers, Lactated) 1,000 mls @ 150 mls/hr IV ASDIRECTED [facility] Last Admin: 02/21/19 19:31 Dose: 150 mls/hr Labetalol HCl (Normodyne) 20 mg IVPUSH ONETIME ONE; Protocol Stop: 02/20/19 12:32 Last Admin: 02/20/19 13:15 Dose: 20 mg Labetalol HCl (Normodyne) 20 mg IVPUSH ONETIME ONE; Protocol Stop: 02/20/19 13:12 Last Admin: 02/20/19 19:36 Dose: Not Given Lidocaine (Xylocaine-Mpf 2%) Confirm Administered Dose 5 ml .ROUTE .STK-MED ONE Stop: 02/20/19 07:33 Lorazepam (Ativan) 0.5 mg IVPUSH Q8H [facility] Last Admin: 02/21/19 19:02 Dose: 0.5 mg Midazolam HCl (Versed 1 Mg/Ml) Confirm Administered Dose 2 mg .ROUTE .STK-MED ONE Stop: 02/20/19 07:34 Morphine Sulfate (Morphine Trade Analyst 30 Mg In 30 Ml) 0 mg IV ASDIRECTED PRN; Protocol PRN Reason: Pain (severe 7-10) Last Admin: 02/21/19 03:40 Dose: 30 mg Naloxone HCl (Narcan) 0.1 mg IVPUSH ASDIRECTED PRN PRN Reason: Respiratory Depression Naloxone HCl (Narcan) 0.04 mg IVPUSH Q3M PRN PRN Reason: Respiratory Depression Ondansetron HCl (Zofran) Confirm Administered Dose 4 mg .ROUTE .STK-MED ONE Stop: 02/20/19 11:57 Ondansetron HCl (Zofran) 4 mg IVPUSH Q6H PRN PRN Reason: Nausea/Vomiting Phenylephrine HCl (Phenylephrine In Ns 100 Mcg/Ml) Confirm Administered Dose 1 mg .ROUTE .STK-MED ONE Stop: 02/20/19 08:41 Propofol (Diprivan 20 Ml) Confirm Administered Dose 400 mg .ROUTE .STK-MED ONE Stop: 02/20/19 07:33 Rocuronium [place] (Zemuron) Confirm Administered Dose 100 mg .ROUTE .STK-MED ONE Stop: 02/20/19 07:33 Rocuronium [place] (Zemuron) Confirm Administered Dose 100 mg .ROUTE .STK-MED ONE Stop: 02/20/19 10:57 Sodium Chloride (Saline Flush) 10 ml FLUSH ASDIRECTED PRN PRN Reason: Keep Vein Open Sodium Chloride (Saline Flush) 2.5 ml FLUSH ASDIRECTED PRN PRN Reason: Keep Vein Open Sodium Chloride (Normal Saline) 10 ml IV ASDIRECTED PRN PRN Reason: IV Use Succinylcholine Chloride (Succinylcholine Chloride) Confirm Administered Dose 200 mg .ROUTE .STK-MED ONE Stop: 02/20/19 07:33 Sugammadex Sodium (Bridion) Confirm Administered Dose 200 mg .ROUTE .STK-MED ONE Stop: 02/20/19 11:00 - Exam Wound/Incisions: Dressing Dry and Intact General: Alert, Oriented Neck: Supple Lungs: Clear to Auscultation Cardiovascular: Regular Rhythm GI/Abdominal Exam: No Distention (deminished bowel sound;) - Problem List Review Problem List Initiated/Reviewed/Updated: Yes - My Orders Last 24 Hours: Active Orders 24 hr Category Date Time Status Transfer Patient (Change bed) [ADT] Routine ADT 02/21/19 19:15 Ordered CIWAA Assessment [RC] Q4H Care 02/21/19 21:23 Active Communication Order [RC] PER UNIT ROUTINE Care 02/21/19 20:57 Active Communication Order [RC] PER UNIT ROUTINE Care 02/22/19 11:39 Active Communication Order [RC] ROUTINE Care 02/22/19 12:19 Ordered Telemetry Monitoring [Cardiac Monitoring] [RC] Q8H Care 02/21/19 20:58 Active Vital Signs [RC] Q4H Care 02/21/19 20:57 Active BASIC METABOLIC PANEL,BMP [CHEM] AM Lab 02/23/19 05:11 Ordered BASIC METABOLIC PANEL,BMP [CHEM] AM Lab 02/24/19 05:11 Ordered CBC WITH AUTO DIFF [HEME] AM Lab 02/23/19 05:11 Ordered CBC WITH AUTO DIFF [HEME] AM Lab 02/24/19 05:11 Ordered HYDROmorphone [Dilaudid] Med 02/21/19 21:20 Active 2 mg IVPUSH Q4H PRN LORazepam [Ativan] Med 02/22/19 07:00 Active 0.5 mg IVPUSH Q12H Lactated Ringers [Ringers, Lactated] 1,000 ml Med 02/21/19 21:00 Active IV ASDIRECTED Nicotine [Habitrol] Med 02/21/19 19:00 Active 14 mg TRDERM DAILY Phenol [Chloraseptic Throat [place]] Med 02/22/19 02:32 Active 1 ml MUCMEM Q2H PRN Medication Orders Hydromorphone HCl (Dilaudid) 2 mg IVPUSH Q4H PRN PRN Reason: Pain Last Admin: 02/22/19 08:57 Dose: 2 mg Admin: 02/22/19 03:58 Dose: 2 mg Admin: 02/21/19 23:24 Dose: 2 mg Pantoprazole Sodium 40 mg/ (Sodium Chloride) 10 mls @ 300 mls/hr IV DAILY [facility] Last Admin: 02/22/19 08:18 Dose: 300 mls/hr Infusion: 02/21/19 09:26 Dose: 300 mls/hr Admin: 02/21/19 09:24 Dose: 300 mls/hr Cefoxitin Sodium 1 gm/ Premix 50 mls @ 100 mls/hr IV Q6H [facility] Last Admin: 02/22/19 09:47 Dose: 100 mls/hr Infusion: 02/22/19 04:48 Dose: 100 mls/hr Admin: 02/22/19 04:18 Dose: 100 mls/hr Infusion: 02/21/19 23:55 Dose: 100 mls/hr Admin: 02/21/19 23:25 Dose: 100 mls/hr Infusion: 02/21/19 16:49 Dose: 100 mls/hr Admin: 02/21/19 16:19 Dose: 100 mls/hr Infusion: 02/21/19 10:37 Dose: 100 mls/hr Admin: 02/21/19 10:07 Dose: 100 mls/hr Infusion: 02/21/19 05:07 Dose: 100 mls/hr Admin: 02/21/19 04:37 Dose: 100 mls/hr Infusion: 02/20/19 22:59 Dose: 100 mls/hr Admin: 02/20/19 22:29 Dose: 100 mls/hr Infusion: 02/20/19 17:55 Dose: 100 mls/hr Admin: 02/20/19 17:25 Dose: 100 mls/hr Lactated Ringer's (Ringers, Lactated) 1,000 mls @ 125 mls/hr IV ASDIRECTED [facility] Last Admin: 02/22/19 12:13 Dose: 125 mls/hr Infusion: 02/22/19 11:57 Dose: 125 mls/hr Admin: 02/22/19 03:57 Dose: 125 mls/hr Lorazepam (Ativan) 1 mg IVPUSH Q4H PRN PRN Reason: Withdrawal Symptoms Last Admin: 02/22/19 02:25 Dose: 1 mg Lorazepam (Ativan) 0.5 mg IVPUSH Q12H [facility] Last Admin: 02/22/19 06:56 Dose: 0.5 mg Nicotine (Habitrol) 14 mg TRDERM DAILY [facility] Last Admin: 02/22/19 08:17 Dose: 14 mg Admin: 02/21/19 19:02 Dose: 14 mg Ondansetron HCl (Zofran) 4 mg IVPUSH Q8H PRN PRN Reason: Nausea/Vomiting Last Admin: 02/22/19 08:30 Dose: 4 mg Admin: 02/21/19 23:30 Dose: 4 mg Admin: 02/21/19 07:18 Dose: 4 mg Phenol/Menthol (Chloraseptic Throat [place]) 1 ml MUCMEM Q2H PRN PRN Reason: Sore Throat Last Admin: 02/22/19 03:58 Dose: 1 spray - Assessment Assessment (Free Text/Narrative):: progressing well postop from peritonitis from walled off perf appendicitis 4 months ago; clamp ngt X 2 hrs, if samaria, dc ngt to sips of clear for today; adv as samaria tomorrow; keep VIGNESH till po diet X 48 hrs; apparantly pt will go back to [facility] right after discharge. Pt will need arrangement for such a long trip. - Plan Plan (Free Text/Narrative):: progressing well postop from peritonitis from walled off perf appendicitis 4 months ago; clamp ngt X 2 hrs, if samaria, dc ngt to sips of clear for today; adv as samaria tomorrow; keep VIGNESH till po diet X 48 hrs; apparantly pt will go back to [facility] right after discharge. Pt will need arrangement for such a long trip.
--- NOTE | 2019-02-22 12:40 | PCM.SN ---
- Free Text/Narrative Note: script written in chart
[2019-02-22] MEDS: Nicotine 21 MG/24 Hr Patch TRDERM SCH (16:36)
--- NOTE | 2019-02-22 21:39 | PCM.SN ---
- Free Text/Narrative Note: called to nursing staff, pt ngt out, tolerated sips of clear. Will advance to clear liquid tomorrow am, then full liquid by lunch. Pt can go home on full liquid. VIGNESH stays till 2 days after po intake. clinically, pt progress well.
[2019-02-23] MEDS: HYDROmorphone 2 MG/ML Syringe IVPUSH PRN (01:56)
[2019-02-23] MEDS: Ondansetron 4 MG/2 ML SDV IVPUSH PRN (02:27)
[2019-02-23] MEDS: cefOXitin 1 GM in Premix Bag 1 BAG IV SCH (03:29)
[2019-02-23] MEDS: Lactated Ringers 1,000 ML IV SCH (05:44)
[2019-02-23] MEDS: LORazepam 2 MG/ML SDV IVPUSH SCH (06:05)
[2019-02-23 06:56] LABS: BLOOD UREA NITROGEN,BUN 10 mg/dL (7.0-18.0); CARBON DIOXIDE,CO2 24.5 mmol/L (21.0-32.0); CHLORIDE,CL 94 mmol/L (98-107); GLUCOSE RANDOM 89 mg/dL (74-106); POTASSIUM,K 4.1 mmol/L (3.5-5.1); SODIUM,NA 130 mmol/L (136-148)
[2019-02-23] MEDS ORDERED: Cyclobenzaprine 5 MG Tab PO PRN (08:14)
[2019-02-23] MEDS: Multivitamin Tab PO SCH (09:41)
[2019-02-23] MEDS: metroNIDAZOLE 250 MG Tab PO SCH ×3 (09:41→19:59)
[2019-02-23] MEDS: Ciprofloxacin 500 MG Tab PO SCH ×2 (09:43→21:23)
--- NOTE | 2019-02-23 09:58 | PCM.SURGPN ---
- General Info Date of Service: 02/23/19 Date of Surgery/Procedure: 02/20/19 POD#: 3 Functional Status: Reports: Pain Controlled, Tolerating Diet, Ambulating, Urinating, Other (Patient's pain is well controlled. NG removed last evening. Tolerating clears. Vitals stable overnight. Passing gas. ) - Review of Systems General: Reports: No Symptoms Pulmonary: Reports: No Symptoms Cardiovascular: Reports: No Symptoms Gastrointestinal: Reports: No Symptoms Musculoskeletal: Reports: No Symptoms - Patient Data Vitals - Most Recent: Last Vital Signs Temp 37.0 C 02/23/19 07:45 Pulse 117 H 02/23/19 07:45 Resp 18 02/23/19 07:45 BP 138/95 H 02/23/19 07:45 Pulse Ox 97 02/23/19 07:45 Weight - Most Recent: 75.16 kg I&O - Last 24 Hours: Intake & Output 02/22/19 02/23/19 02/23/19 22:59 06:59 14:59 Intake Total 1768 2081 Output Total 1025 765 Balance 743 1316 Lab Results Last 24 Hrs: Laboratory Results - last 24 hr 02/23/19 02/23/19 Range/Units 05:40 05:40 WBC 9.66 (4.0-11.0) K/uL RBC 4.58 (4.50-5.90) M/uL Hgb 14.0 (13.0-17.0) g/dL Hct 40.0 (38.0-50.0) % MCV 87.3 (80.0-98.0) fL MCH 30.6 (27.0-32.0) pg MCHC 35.0 (31.0-37.0) g/dL RDW Std Deviation 41.8 (28.0-62.0) fl RDW Coeff of Roe 13 (11.0-15.0) % Plt Count 207 (150-400) K/uL MPV 10.40 (7.40-12.00) fL Neut % (Auto) 80.2 H (48.0-80.0) % Lymph % (Auto) 10.1 L (16.0-40.0) % [place] % (Auto) 7.8 (0.0-15.0) % Eos % (Auto) 1.7 (0.0-7.0) % Baso % (Auto) 0.2 (0.0-1.5) % Neut # (Auto) 7.8 H (1.4-5.7) K/uL Lymph # (Auto) 1.0 (0.6-2.4) K/uL [place] # (Auto) 0.8 (0.0-0.8) K/uL Eos # (Auto) 0.2 (0.0-0.7) K/uL Baso # (Auto) 0.0 (0.0-0.1) K/uL Nucleated RBC % 0.0 /100WBC Nucleated RBCs # 0 K/uL Sodium 130 L (136-148) mmol/L Potassium 4.1 (3.5-5.1) mmol/L Chloride 94 L (98-107) mmol/L Carbon Dioxide 24.5 (21.0-32.0) mmol/L BUN 10 (7.0-18.0) mg/dL Creatinine 0.8 (0.8-1.3) mg/dL Est Cr Clr Drug Dosing 131.79 mL/min Estimated GFR (MDRD) > 60.0 ml/min Glucose 89 (74-106) mg/dL Calcium 9.1 (8.5-10.1) mg/dL Sj Results Last 24 Hrs: Microbiology 02/20/19 09:07 Gram Stain - Preliminary Peritoneal Fluid Wound Culture - Preliminary NO GROWTH AFTER 2 DAYS Anaerobic Culture - Preliminary NO GROWTH AFTER 2 DAYS Med Orders - Current: Current Medications Ciprofloxacin (Ciprofloxacin Hcl) 500 mg PO BID [facility] Last Admin: 02/23/19 09:43 Dose: 500 mg Cyclobenzaprine HCl (Flexeril) 5 mg PO TID PRN PRN Reason: Muscle Spasm Hydromorphone HCl (Dilaudid) 2 mg IVPUSH Q4H PRN PRN Reason: Pain Last Admin: 02/23/19 01:56 Dose: 2 mg Lactated Ringer's (Ringers, Lactated) 1,000 mls @ 125 mls/hr IV ASDIRECTED [facility] Last Admin: 02/23/19 05:44 Dose: 125 mls/hr Metronidazole (Metronidazole) 250 mg PO Q6H [facility] Last Admin: 02/23/19 09:41 Dose: 250 mg Multivitamins/Minerals/Vitamin C (Tab-A-Darleen) 1 tab PO DAILY [facility] Last Admin: 02/23/19 09:41 Dose: 1 tab Nicotine (Habitrol) 21 mg TRDERM Q24H [facility] Last Admin: 02/22/19 16:36 Dose: 21 mg Ondansetron HCl (Zofran) 4 mg IVPUSH Q8H PRN PRN Reason: Nausea/Vomiting Last Admin: 02/23/19 02:27 Dose: 4 mg Oxycodone/Acetaminophen (Percocet 325-5 Mg) 2 tab PO Q4H PRN PRN Reason: Abdominal Pain Phenol/Menthol (Chloraseptic Throat [place]) 1 ml MUCMEM Q2H PRN PRN Reason: Sore Throat Last Admin: 02/22/19 03:58 Dose: 1 spray Discontinued Medications Albuterol (Proventil Neb Soln) 2.5 mg NEB ONETIME PRN PRN Reason: Wheezing Atropine Sulfate (Atropine 0.1 Mg/Ml) 0.5 mg IVPUSH ASDIRECTED PRN PRN Reason: Hypo-perfusion Atropine Sulfate (Atropine 0.1 Mg/Ml) 1 mg IVPUSH ASDIRECTED PRN PRN Reason: Hypo-Perfusion Cefazolin Sodium (Ancef) Confirm Administered Dose 1 gm .ROUTE .STK-MED ONE Stop: 02/20/19 09:49 Dexamethasone (Dexamethasone) Confirm Administered Dose 20 mg .ROUTE .STK-MED ONE Stop: 02/20/19 11:57 Dextrose/Water (Dextrose 50% In Water) 50 ml IVPUSH ASDIRECTED PRN PRN Reason: Hypoglycemia Diphenhydramine HCl (Benadryl) 25 mg IVPUSH Q6H PRN PRN Reason: Itching Diphenhydramine HCl (Benadryl) 25 mg PO Q6H PRN PRN Reason: Itching Epinephrine HCl (Epinephrine 1:10,000) 1 mg IVPUSH ASDIRECTED PRN PRN Reason: ACLS Guidelines Fentanyl (Sublimaze) Confirm Administered Dose 250 mcg .ROUTE .STK-MED ONE Stop: 02/20/19 07:34 Fentanyl (Sublimaze) 50 mcg IVPUSH Q5M PRN PRN Reason: Pain Fentanyl Citrate (Fentanyl In Ns 300 Mcg/30 Ml Flight Engineer Inspector) 0 mcg IV ASDIRECTED [facility]; Protocol Hydralazine HCl (Apresoline) 10 mg IVPUSH ONETIME ONE Stop: 02/20/19 13:33 Last Admin: 02/20/19 14:00 Dose: 10 mg Hydralazine HCl (Apresoline) 10 mg IVPUSH ONETIME ONE Stop: 02/20/19 14:01 Last Admin: 02/20/19 15:10 Dose: 10 mg Hydralazine HCl (Apresoline) 10 mg IVPUSH ONETIME ONE Stop: 02/20/19 15:10 Last Admin: 02/20/19 19:36 Dose: Not Given Hydralazine HCl (Apresoline) 10 mg IVPUSH ONETIME ONE Stop: 02/21/19 15:56 Last Admin: 02/21/19 16:07 Dose: 10 mg Hydromorphone HCl (Dilaudid) 0.5 mg IVPUSH Q1H PRN PRN Reason: Abdominal Pain Last Admin: 02/20/19 12:50 Dose: 0.5 mg Hydromorphone HCl (Dilaudid) Confirm Administered Dose 2 mg .ROUTE .STK-MED ONE Stop: 02/20/19 09:59 Hydromorphone HCl (Dilaudid) Confirm Administered Dose 2 mg .ROUTE .STK-MED ONE Stop: 02/20/19 12:46 Last Admin: 02/20/19 13:33 Dose: 1 mg Hydromorphone HCl (Dilaudid) 0.5 mg IVPUSH Q1H PRN PRN Reason: Abdominal Pain Hydromorphone HCl (Dilaudid) Confirm Administered Dose 2 mg .ROUTE .STK-MED ONE Stop: 02/20/19 13:30 Last Admin: 02/20/19 19:36 Dose: Not Given Hydromorphone HCl (Dilaudid) Confirm Administered Dose 2 mg .ROUTE .STK-MED ONE Stop: 02/20/19 15:27 Last Admin: 02/20/19 15:31 Dose: 1 mg Lactated Ringer's (Ringers, Lactated) 1,000 mls @ 125 mls/hr IV ASDIRECTED [facility] Bupivacaine HCl/Epinephrine Bitart (Sensorc Mpf 0.25%-Epi 1:[id number]) Confirm Administered Dose 30 mls @ as directed .ROUTE .STK-MED ONE Stop: 02/20/19 07:31 Sodium Chloride (Normal Saline) Confirm Administered Dose 20 mls @ as directed .ROUTE .[facility]-MED ONE Stop: 02/20/19 08:32 Cefoxitin Sodium (Mefoxin In Dextrose,Iso-Osm 1 Gm/50 Ml) Confirm Administered Dose 100 mls @ as directed .ROUTE .[facility] ONE Stop: 02/20/19 08:41 Acetaminophen (Ofirmev) Confirm Administered Dose 100 mls @ as directed IV .[facility]- MED ONE Stop: 02/20/19 11:00 Cefoxitin Sodium 1 gm/ Premix 50 mls @ 100 mls/hr IV Q6H [facility] Last Admin: 02/20/19 19:01 Dose: Not Given Pantoprazole Sodium 40 mg/ (Sodium Chloride) 10 mls @ 300 mls/hr IV DAILY [facility] Last Admin: 02/22/19 08:18 Dose: 300 mls/hr Lactated Ringer's (Ringers, Lactated) 1,000 mls @ 150 mls/hr IV ASDIRECTED [facility] Last Admin: 02/21/19 19:31 Dose: 150 mls/hr Cefoxitin Sodium 1 gm/ Premix 50 mls @ 100 mls/hr IV Q6H [facility] Last Admin: 02/23/19 03:29 Dose: 100 mls/hr Labetalol HCl (Normodyne) 20 mg IVPUSH ONETIME ONE; Protocol Stop: 02/20/19 12:32 Last Admin: 02/20/19 13:15 Dose: 20 mg Labetalol HCl (Normodyne) 20 mg IVPUSH ONETIME ONE; Protocol Stop: 02/20/19 13:12 Last Admin: 02/20/19 19:36 Dose: Not Given Lidocaine (Xylocaine-Mpf 2%) Confirm Administered Dose 5 ml .ROUTE .[facility] ONE Stop: 02/20/19 07:33 Lorazepam (Ativan) 1 mg IVPUSH Q4H PRN PRN Reason: Withdrawal Symptoms Last Admin: 02/22/19 02:25 Dose: 1 mg Lorazepam (Ativan) 0.5 mg IVPUSH Q8H [facility] Last Admin: 02/21/19 19:02 Dose: 0.5 mg Lorazepam (Ativan) 0.5 mg IVPUSH Q12H [facility] Last Admin: 02/23/19 06:05 Dose: 0.5 mg Midazolam HCl (Versed 1 Mg/Ml) Confirm Administered Dose 2 mg .ROUTE .STK-MED ONE Stop: 02/20/19 07:34 Morphine Sulfate (Morphine Flight Engineer Inspector 30 Mg In 30 Ml) 0 mg IV ASDIRECTED PRN; Protocol PRN Reason: Pain (severe 7-10) Last Admin: 02/21/19 03:40 Dose: 30 mg Naloxone HCl (Narcan) 0.1 mg IVPUSH ASDIRECTED PRN PRN Reason: Respiratory Depression Naloxone HCl (Narcan) 0.04 mg IVPUSH Q3M PRN PRN Reason: Respiratory Depression Nicotine (Habitrol) 14 mg TRDERM DAILY [facility] Last Admin: 02/22/19 08:17 Dose: 14 mg Ondansetron HCl (Zofran) Confirm Administered Dose 4 mg .ROUTE .STK-MED ONE Stop: 02/20/19 11:57 Ondansetron HCl (Zofran) 4 mg IVPUSH Q6H PRN PRN Reason: Nausea/Vomiting Phenylephrine HCl (Phenylephrine In Ns 100 Mcg/Ml) Confirm Administered Dose 1 mg .ROUTE .STK-MED ONE Stop: 02/20/19 08:41 Propofol (Diprivan 20 Ml) Confirm Administered Dose 400 mg .ROUTE .STK-MED ONE Stop: 02/20/19 07:33 Rocuronium [place] (Zemuron) Confirm Administered Dose 100 mg .ROUTE .STK-MED ONE Stop: 02/20/19 07:33 Rocuronium [place] (Zemuron) Confirm Administered Dose 100 mg .ROUTE .STK-MED ONE Stop: 02/20/19 10:57 Sodium Chloride (Saline Flush) 10 ml FLUSH ASDIRECTED PRN PRN Reason: Keep Vein Open Sodium Chloride (Saline Flush) 2.5 ml FLUSH ASDIRECTED PRN PRN Reason: Keep Vein Open Sodium Chloride (Normal Saline) 10 ml IV ASDIRECTED PRN PRN Reason: IV Use Succinylcholine Chloride (Succinylcholine Chloride) Confirm Administered Dose 200 mg .ROUTE .STK-MED ONE Stop: 02/20/19 07:33 Sugammadex Sodium ([place]) Confirm Administered Dose 200 mg .ROUTE .STK-MED ONE Stop: 02/20/19 11:00 - Exam Wound/Incisions: Healing Well, Other (Dressing removed. Incisions appear to be healing well with no signs of breakdown or infection. The drain has scant serosanguinous output. ) General: Alert, Oriented, Cooperative Lungs: Rhonchi Cardiovascular: Regular Rate GI/Abdominal Exam: Soft, Non-Tender, No Distention, No Mass Extremities: Normal Inspection Skin: Warm, Dry, Intact - Problem List & Annotations (1) Acute appendicitis SNOMED Code(s): 06564706 Code(s): K35.80 - UNSPECIFIED ACUTE APPENDICITIS Status: Acute Current Visit: No Qualifiers: Acute appendicitis type: with localized peritonitis Appendicitis gangrene presence: without gangrene Appendicitis perforation presence: without perforation Appendicitis abscess presence: without abscess Qualified Code(s) : K35.30 - Acute appendicitis with localized peritonitis, without perforation or gangrene - Problem List Review Problem List Initiated/Reviewed/Updated: Yes - My Orders Last 24 Hours: Active Orders 24 hr Category Date Time Status Communication Order [RC] ROUTINE Care 02/22/19 12:19 Active Regular Diet [DIET] Diet 02/23/19 Lunch Active BASIC METABOLIC PANEL,BMP [CHEM] AM Lab 02/24/19 05:11 Ordered CBC WITH AUTO DIFF [HEME] AM Lab 02/24/19 05:11 Ordered Acetaminophen/oxyCODONE [Percocet 325-5 MG] Med 02/23/19 08:09 Active 2 tab PO Q4H PRN Ciprofloxacin [Ciprofloxacin HCl] Med 02/23/19 09:00 Active 500 mg PO BID Cyclobenzaprine [Flexeril] Med 02/23/19 08:14 Active 5 mg PO TID PRN Multivitamins [Tab-A-Darleen] Med 02/23/19 09:00 Active 1 tab PO DAILY Nicotine [Habitrol] Med 02/22/19 16:00 Active 21 mg TRDERM Q24H metroNIDAZOLE Med 02/23/19 08:15 Active 250 mg PO Q6H Medication Orders Ciprofloxacin (Ciprofloxacin Hcl) 500 mg PO BID [facility] Last Admin: 02/23/19 09:43 Dose: 500 mg Cyclobenzaprine HCl (Flexeril) 5 mg PO TID PRN PRN Reason: Muscle Spasm Hydromorphone HCl (Dilaudid) 2 mg IVPUSH Q4H PRN PRN Reason: Pain Last Admin: 02/23/19 01:56 Dose: 2 mg Admin: 02/22/19 21:47 Dose: 2 mg Admin: 02/22/19 17:29 Dose: 2 mg Admin: 02/22/19 13:28 Dose: 2 mg Admin: 02/22/19 08:57 Dose: 2 mg Admin: 02/22/19 03:58 Dose: 2 mg Admin: 02/21/19 23:24 Dose: 2 mg Lactated Ringer's (Ringers, Lactated) 1,000 mls @ 125 mls/hr IV ASDIRECTED [facility] Last Admin: 02/23/19 05:44 Dose: 125 mls/hr Infusion: 02/23/19 04:44 Dose: 125 mls/hr Admin: 02/22/19 20:44 Dose: 125 mls/hr Infusion: 02/22/19 20:13 Dose: 125 mls/hr Admin: 02/22/19 12:13 Dose: 125 mls/hr Infusion: 02/22/19 11:57 Dose: 125 mls/hr Admin: 02/22/19 03:57 Dose: 125 mls/hr Metronidazole (Metronidazole) 250 mg PO Q6H [facility] Last Admin: 02/23/19 09:41 Dose: 250 mg Multivitamins/Minerals/Vitamin C (Tab-A-Darleen) 1 tab PO DAILY [facility] Last Admin: 02/23/19 09:41 Dose: 1 tab Nicotine (Habitrol) 21 mg TRDERM Q24H [facility] Last Admin: 02/22/19 16:36 Dose: 21 mg Ondansetron HCl (Zofran) 4 mg IVPUSH Q8H PRN PRN Reason: Nausea/Vomiting Last Admin: 02/23/19 02:27 Dose: 4 mg Admin: 02/22/19 18:13 Dose: 4 mg Admin: 02/22/19 08:30 Dose: 4 mg Admin: 02/21/19 23:30 Dose: 4 mg Admin: 02/21/19 07:18 Dose: 4 mg Oxycodone/Acetaminophen (Percocet 325-5 Mg) 2 tab PO Q4H PRN PRN Reason: Abdominal Pain Phenol/Menthol (Chloraseptic Throat [place]) 1 ml MUCMEM Q2H PRN PRN Reason: Sore Throat Last Admin: 02/22/19 03:58 Dose: 1 spray - Assessment Assessment (Free Text/Narrative):: Pain: IV dilaudid only for severe pain. Percocet 325-5 mg 1-2 tab q 4hr prn pain. Encouraged him to use po meds more today. CV/Pulm: VSS. Encourage OOB activity today and IS use. GI: Advance diet to regular. Encouraged him to stick to small frequent meals and increased liquid intake. Multivitamin today. D/C pantoprazole since tolerating regular diet. Will add dulcolax for bowel regiment today. Renal: Hyponatremic. D/C IVF and monitor. UOP adequate. ID: D/C ancef. Switch to po cipro and flagyl. Will d/c home on this. Px: SCDs, lovenox Anticipate d/c home tomorrow
[2019-02-23] MEDS: Acetaminophen/oxyCODONE 325-5 MG Tab PO PRN ×3 (10:08→19:55)
[2019-02-23] MEDS: Bisacodyl 5 MG Tab PO SCH (11:52)
--- NOTE | 2019-02-23 15:21 | PCM.PN ---
- General Info Date of Service: 02/23/19 Functional Status: Reports: Pain Controlled - Review of Systems General: Reports: No Symptoms Pulmonary: Reports: No Symptoms Cardiovascular: Reports: No Symptoms Gastrointestinal: Reports: No Symptoms Musculoskeletal: Reports: No Symptoms Neurological: Reports: No Symptoms - Patient Data Vitals - Most Recent: Last Vital Signs Temp 98.6 F 02/23/19 11:00 Pulse 92 02/23/19 11:00 Resp 14 02/23/19 11:00 BP 135/96 H 02/23/19 11:00 Pulse Ox 92 L 02/23/19 11:00 Weight - Most Recent: 165 lb 11.2 oz I&O - Last 24 Hours: Intake & Output 02/23/19 02/23/19 02/23/19 06:59 14:59 22:59 Intake Total 2081 Output Total 765 Balance 1316 Lab Results Last 24 Hours: Laboratory Results - last 24 hr 02/23/19 02/23/19 Range/Units 05:40 05:40 WBC 9.66 (4.0-11.0) K/uL RBC 4.58 (4.50-5.90) M/uL Hgb 14.0 (13.0-17.0) g/dL Hct 40.0 (38.0-50.0) % MCV 87.3 (80.0-98.0) fL MCH 30.6 (27.0-32.0) pg MCHC 35.0 (31.0-37.0) g/dL RDW Std Deviation 41.8 (28.0-62.0) fl RDW Coeff of Roe 13 (11.0-15.0) % Plt Count 207 (150-400) K/uL MPV 10.40 (7.40-12.00) fL Neut % (Auto) 80.2 H (48.0-80.0) % Lymph % (Auto) 10.1 L (16.0-40.0) % [place] % (Auto) 7.8 (0.0-15.0) % Eos % (Auto) 1.7 (0.0-7.0) % Baso % (Auto) 0.2 (0.0-1.5) % Neut # (Auto) 7.8 H (1.4-5.7) K/uL Lymph # (Auto) 1.0 (0.6-2.4) K/uL [place] # (Auto) 0.8 (0.0-0.8) K/uL Eos # (Auto) 0.2 (0.0-0.7) K/uL Baso # (Auto) 0.0 (0.0-0.1) K/uL Nucleated RBC % 0.0 /100WBC Nucleated RBCs # 0 K/uL Sodium 130 L (136-148) mmol/L Potassium 4.1 (3.5-5.1) mmol/L Chloride 94 L (98-107) mmol/L Carbon Dioxide 24.5 (21.0-32.0) mmol/L BUN 10 (7.0-18.0) mg/dL Creatinine 0.8 (0.8-1.3) mg/dL Est Cr Clr Drug Dosing 131.79 mL/min Estimated GFR (MDRD) > 60.0 ml/min Glucose 89 (74-106) mg/dL Calcium 9.1 (8.5-10.1) mg/dL Sj Results Last 24 Hours: Microbiology 02/20/19 09:07 Gram Stain - Preliminary Peritoneal Fluid Wound Culture - Preliminary NO GROWTH AFTER 2 DAYS Anaerobic Culture - Preliminary NO GROWTH AFTER 2 DAYS Med Orders - Current: Current Medications Bisacodyl (Dulcolax) 10 mg PO DAILY [facility] Last Admin: 02/23/19 11:52 Dose: 10 mg Ciprofloxacin (Ciprofloxacin Hcl) 500 mg PO BID [facility] Last Admin: 02/23/19 09:43 Dose: 500 mg Cyclobenzaprine HCl (Flexeril) 5 mg PO TID PRN PRN Reason: Muscle Spasm Hydromorphone HCl (Dilaudid) 2 mg IVPUSH Q4H PRN PRN Reason: Pain Last Admin: 02/23/19 01:56 Dose: 2 mg Lactated Ringer's (Ringers, Lactated) 1,000 mls @ 125 mls/hr IV ASDIRECTED [facility] Last Admin: 02/23/19 05:44 Dose: 125 mls/hr Metronidazole (Metronidazole) 250 mg PO Q6H [facility] Last Admin: 02/23/19 14:29 Dose: 250 mg Multivitamins/Minerals/Vitamin C (Tab-A-Darleen) 1 tab PO DAILY [facility] Last Admin: 02/23/19 09:41 Dose: 1 tab Nicotine (Habitrol) 21 mg TRDERM Q24H [facility] Last Admin: 02/22/19 16:36 Dose: 21 mg Ondansetron HCl (Zofran) 4 mg IVPUSH Q8H PRN PRN Reason: Nausea/Vomiting Last Admin: 02/23/19 02:27 Dose: 4 mg Oxycodone/Acetaminophen (Percocet 325-5 Mg) 2 tab PO Q4H PRN PRN Reason: Abdominal Pain Last Admin: 02/23/19 14:29 Dose: 2 tab Phenol/Menthol (Chloraseptic Throat [place]) 1 ml MUCMEM Q2H PRN PRN Reason: Sore Throat Last Admin: 02/22/19 03:58 Dose: 1 spray Discontinued Medications Albuterol (Proventil Neb Soln) 2.5 mg NEB ONETIME PRN PRN Reason: Wheezing Atropine Sulfate (Atropine 0.1 Mg/Ml) 0.5 mg IVPUSH ASDIRECTED PRN PRN Reason: Hypo-perfusion Atropine Sulfate (Atropine 0.1 Mg/Ml) 1 mg IVPUSH ASDIRECTED PRN PRN Reason: Hypo-Perfusion Cefazolin Sodium (Ancef) Confirm Administered Dose 1 gm .ROUTE .STK-MED ONE Stop: 02/20/19 09:49 Dexamethasone (Dexamethasone) Confirm Administered Dose 20 mg .ROUTE .STK-MED ONE Stop: 02/20/19 11:57 Dextrose/Water (Dextrose 50% In Water) 50 ml IVPUSH ASDIRECTED PRN PRN Reason: Hypoglycemia Diphenhydramine HCl (Benadryl) 25 mg IVPUSH Q6H PRN PRN Reason: Itching Diphenhydramine HCl (Benadryl) 25 mg PO Q6H PRN PRN Reason: Itching Epinephrine HCl (Epinephrine 1:10,000) 1 mg IVPUSH ASDIRECTED PRN PRN Reason: ACLS Guidelines Fentanyl (Sublimaze) Confirm Administered Dose 250 mcg .ROUTE .STK-MED ONE Stop: 02/20/19 07:34 Fentanyl (Sublimaze) 50 mcg IVPUSH Q5M PRN PRN Reason: Pain Fentanyl Citrate (Fentanyl In Ns 300 Mcg/30 Ml Computational Physicist) 0 mcg IV ASDIRECTED [facility]; Protocol Hydralazine HCl (Apresoline) 10 mg IVPUSH ONETIME ONE Stop: 02/20/19 13:33 Last Admin: 02/20/19 14:00 Dose: 10 mg Hydralazine HCl (Apresoline) 10 mg IVPUSH ONETIME ONE Stop: 02/20/19 14:01 Last Admin: 02/20/19 15:10 Dose: 10 mg Hydralazine HCl (Apresoline) 10 mg IVPUSH ONETIME ONE Stop: 02/20/19 15:10 Last Admin: 02/20/19 19:36 Dose: Not Given Hydralazine HCl (Apresoline) 10 mg IVPUSH ONETIME ONE Stop: 02/21/19 15:56 Last Admin: 02/21/19 16:07 Dose: 10 mg Hydromorphone HCl (Dilaudid) 0.5 mg IVPUSH Q1H PRN PRN Reason: Abdominal Pain Last Admin: 02/20/19 12:50 Dose: 0.5 mg Hydromorphone HCl (Dilaudid) Confirm Administered Dose 2 mg .ROUTE .STK-MED ONE Stop: 02/20/19 09:59 Hydromorphone HCl (Dilaudid) Confirm Administered Dose 2 mg .ROUTE .STK-MED ONE Stop: 02/20/19 12:46 Last Admin: 02/20/19 13:33 Dose: 1 mg Hydromorphone HCl (Dilaudid) 0.5 mg IVPUSH Q1H PRN PRN Reason: Abdominal Pain Hydromorphone HCl (Dilaudid) Confirm Administered Dose 2 mg .ROUTE .STK-MED ONE Stop: 02/20/19 13:30 Last Admin: 02/20/19 19:36 Dose: Not Given Hydromorphone HCl (Dilaudid) Confirm Administered Dose 2 mg .ROUTE .STK-MED ONE Stop: 02/20/19 15:27 Last Admin: 02/20/19 15:31 Dose: 1 mg Lactated Ringer's (Ringers, Lactated) 1,000 mls @ 125 mls/hr IV ASDIRECTED [facility] Bupivacaine HCl/Epinephrine Bitart (Sensorc Mpf 0.25%-Epi 1:[id number]) Confirm Administered Dose 30 mls @ as directed .ROUTE .STK-MED ONE Stop: 02/20/19 07:31 Sodium Chloride (Normal Saline) Confirm Administered Dose 20 mls @ as directed .ROUTE .STK-MED ONE Stop: 02/20/19 08:32 Cefoxitin Sodium (Mefoxin In Dextrose,Iso-Osm 1 Gm/50 Ml) Confirm Administered Dose 100 mls @ as directed .ROUTE .K-MED ONE Stop: 02/20/19 08:41 Acetaminophen (Ofirmev) Confirm Administered Dose 100 mls @ as directed IV .STK- MED ONE Stop: 02/20/19 11:00 Cefoxitin Sodium 1 gm/ Premix 50 mls @ 100 mls/hr IV Q6H [facility] Last Admin: 02/20/19 19:01 Dose: Not Given Pantoprazole Sodium 40 mg/ (Sodium Chloride) 10 mls @ 300 mls/hr IV DAILY [facility] Last Admin: 02/22/19 08:18 Dose: 300 mls/hr Lactated Ringer's (Ringers, Lactated) 1,000 mls @ 150 mls/hr IV ASDIRECTED [facility] Last Admin: 02/21/19 19:31 Dose: 150 mls/hr Cefoxitin Sodium 1 gm/ Premix 50 mls @ 100 mls/hr IV Q6H [facility] Last Admin: 02/23/19 03:29 Dose: 100 mls/hr Labetalol HCl (Normodyne) 20 mg IVPUSH ONETIME ONE; Protocol Stop: 02/20/19 12:32 Last Admin: 02/20/19 13:15 Dose: 20 mg Labetalol HCl (Normodyne) 20 mg IVPUSH ONETIME ONE; Protocol Stop: 02/20/19 13:12 Last Admin: 02/20/19 19:36 Dose: Not Given Lidocaine (Xylocaine-Mpf 2%) Confirm Administered Dose 5 ml .ROUTE .STK-MED ONE Stop: 02/20/19 07:33 Lorazepam (Ativan) 1 mg IVPUSH Q4H PRN PRN Reason: Withdrawal Symptoms Last Admin: 02/22/19 02:25 Dose: 1 mg Lorazepam (Ativan) 0.5 mg IVPUSH Q8H [facility] Last Admin: 02/21/19 19:02 Dose: 0.5 mg Lorazepam (Ativan) 0.5 mg IVPUSH Q12H [facility] Last Admin: 02/23/19 06:05 Dose: 0.5 mg Midazolam HCl (Versed 1 Mg/Ml) Confirm Administered Dose 2 mg .ROUTE .STK-MED ONE Stop: 02/20/19 07:34 Morphine Sulfate (Morphine Computational Physicist 30 Mg In 30 Ml) 0 mg IV ASDIRECTED PRN; Protocol PRN Reason: Pain (severe 7-10) Last Admin: 02/21/19 03:40 Dose: 30 mg Naloxone HCl (Narcan) 0.1 mg IVPUSH ASDIRECTED PRN PRN Reason: Respiratory Depression Naloxone HCl (Narcan) 0.04 mg IVPUSH Q3M PRN PRN Reason: Respiratory Depression Nicotine (Habitrol) 14 mg TRDERM DAILY [facility] Last Admin: 02/22/19 08:17 Dose: 14 mg Ondansetron HCl (Zofran) Confirm Administered Dose 4 mg .ROUTE .STFashion & You-MED ONE Stop: 02/20/19 11:57 Ondansetron HCl (Zofran) 4 mg IVPUSH Q6H PRN PRN Reason: Nausea/Vomiting Phenylephrine HCl (Phenylephrine In Ns 100 Mcg/Ml) Confirm Administered Dose 1 mg .ROUTE .STFashion & You-MED ONE Stop: 02/20/19 08:41 Propofol (Diprivan 20 Ml) Confirm Administered Dose 400 mg .ROUTE .STK-MED ONE Stop: 02/20/19 07:33 Rocuronium Ebony (Zemuron) Confirm Administered Dose 100 mg .ROUTE .STFashion & You-MED ONE Stop: 02/20/19 07:33 Rocuronium Ebony (Zemuron) Confirm Administered Dose 100 mg .ROUTE .STFashion & You-MED ONE Stop: 02/20/19 10:57 Sodium Chloride (Saline Flush) 10 ml FLUSH ASDIRECTED PRN PRN Reason: Keep Vein Open Sodium Chloride (Saline Flush) 2.5 ml FLUSH ASDIRECTED PRN PRN Reason: Keep Vein Open Sodium Chloride (Normal Saline) 10 ml IV ASDIRECTED PRN PRN Reason: IV Use Succinylcholine Chloride (Succinylcholine Chloride) Confirm Administered Dose 200 mg .ROUTE .STK-MED ONE Stop: 02/20/19 07:33 Sugammadex Sodium (Bridion) Confirm Administered Dose 200 mg .ROUTE .STFashion & You-MED ONE Stop: 02/20/19 11:00 - Exam General: Alert, Oriented HEENT: Pupils Equal, EOMI
--- NOTE | 2019-02-23 15:31 | PCM.CONSN ---
- General Info Date of Service: 02/23/19 Subjective Update: Patient denies any pain or discomfort at this time. Has no other issues currently at this time. Functional Status: Reports: Pain Controlled - Review of Systems General: Reports: No Symptoms HEENT: Reports: No Symptoms Pulmonary: Reports: No Symptoms Cardiovascular: Reports: No Symptoms Gastrointestinal: Reports: Other (Abdominal soreness) Musculoskeletal: Reports: No Symptoms Neurological: Reports: No Symptoms - Patient Data Vitals - Most Recent: Last Vital Signs Temp 98.6 F 02/23/19 11:00 Pulse 92 02/23/19 11:00 Resp 14 02/23/19 11:00 BP 135/96 H 02/23/19 11:00 Pulse Ox 92 L 02/23/19 11:00 Weight - Most Recent: 165 lb 11.2 oz I&O - Last 24 Hours: Intake & Output 02/23/19 02/23/19 02/23/19 06:59 14:59 22:59 Intake Total 2081 Output Total 765 Balance 1316 Lab Results Last 24 Hours: Laboratory Results - last 24 hr 02/23/19 02/23/19 Range/Units 05:40 05:40 WBC 9.66 (4.0-11.0) K/uL RBC 4.58 (4.50-5.90) M/uL Hgb 14.0 (13.0-17.0) g/dL Hct 40.0 (38.0-50.0) % MCV 87.3 (80.0-98.0) fL MCH 30.6 (27.0-32.0) pg MCHC 35.0 (31.0-37.0) g/dL RDW Std Deviation 41.8 (28.0-62.0) fl RDW Coeff of Roe 13 (11.0-15.0) % Plt Count 207 (150-400) K/uL MPV 10.40 (7.40-12.00) fL Neut % (Auto) 80.2 H (48.0-80.0) % Lymph % (Auto) 10.1 L (16.0-40.0) % [place] % (Auto) 7.8 (0.0-15.0) % Eos % (Auto) 1.7 (0.0-7.0) % Baso % (Auto) 0.2 (0.0-1.5) % Neut # (Auto) 7.8 H (1.4-5.7) K/uL Lymph # (Auto) 1.0 (0.6-2.4) K/uL [place] # (Auto) 0.8 (0.0-0.8) K/uL Eos # (Auto) 0.2 (0.0-0.7) K/uL Baso # (Auto) 0.0 (0.0-0.1) K/uL Nucleated RBC % 0.0 /100WBC Nucleated RBCs # 0 K/uL Sodium 130 L (136-148) mmol/L Potassium 4.1 (3.5-5.1) mmol/L Chloride 94 L (98-107) mmol/L Carbon Dioxide 24.5 (21.0-32.0) mmol/L BUN 10 (7.0-18.0) mg/dL Creatinine 0.8 (0.8-1.3) mg/dL Est Cr Clr Drug Dosing 131.79 mL/min Estimated GFR (MDRD) > 60.0 ml/min Glucose 89 (74-106) mg/dL Calcium 9.1 (8.5-10.1) mg/dL Sj Results Last 24 Hours: Microbiology 02/20/19 09:07 Gram Stain - Preliminary Peritoneal Fluid Wound Culture - Preliminary NO GROWTH AFTER 2 DAYS Anaerobic Culture - Preliminary NO GROWTH AFTER 2 DAYS Med Orders - Current: Current Medications Bisacodyl (Dulcolax) 10 mg PO DAILY [facility] Last Admin: 02/23/19 11:52 Dose: 10 mg Ciprofloxacin (Ciprofloxacin Hcl) 500 mg PO BID [facility] Last Admin: 02/23/19 09:43 Dose: 500 mg Cyclobenzaprine HCl (Flexeril) 5 mg PO TID PRN PRN Reason: Muscle Spasm Hydromorphone HCl (Dilaudid) 2 mg IVPUSH Q4H PRN PRN Reason: Pain Last Admin: 02/23/19 01:56 Dose: 2 mg Lactated Ringer's (Ringers, Lactated) 1,000 mls @ 125 mls/hr IV ASDIRECTED [facility] Last Admin: 02/23/19 05:44 Dose: 125 mls/hr Metronidazole (Metronidazole) 250 mg PO Q6H [facility] Last Admin: 02/23/19 14:29 Dose: 250 mg Multivitamins/Minerals/Vitamin C (Tab-A-Darleen) 1 tab PO DAILY [facility] Last Admin: 02/23/19 09:41 Dose: 1 tab Nicotine (Habitrol) 21 mg TRDERM Q24H UMA Last Admin: 02/22/19 16:36 Dose: 21 mg Ondansetron HCl (Zofran) 4 mg IVPUSH Q8H PRN PRN Reason: Nausea/Vomiting Last Admin: 02/23/19 02:27 Dose: 4 mg Oxycodone/Acetaminophen (Percocet 325-5 Mg) 2 tab PO Q4H PRN PRN Reason: Abdominal Pain Last Admin: 02/23/19 14:29 Dose: 2 tab Phenol/Menthol (Chloraseptic Throat [place]) 1 ml MUCMEM Q2H PRN PRN Reason: Sore Throat Last Admin: 02/22/19 03:58 Dose: 1 spray Discontinued Medications Albuterol (Proventil Neb Soln) 2.5 mg NEB ONETIME PRN PRN Reason: Wheezing Atropine Sulfate (Atropine 0.1 Mg/Ml) 0.5 mg IVPUSH ASDIRECTED PRN PRN Reason: Hypo-perfusion Atropine Sulfate (Atropine 0.1 Mg/Ml) 1 mg IVPUSH ASDIRECTED PRN PRN Reason: Hypo-Perfusion Cefazolin Sodium (Ancef) Confirm Administered Dose 1 gm .ROUTE .STK-MED ONE Stop: 02/20/19 09:49 Dexamethasone (Dexamethasone) Confirm Administered Dose 20 mg .ROUTE .STK-MED ONE Stop: 02/20/19 11:57 Dextrose/Water (Dextrose 50% In Water) 50 ml IVPUSH ASDIRECTED PRN PRN Reason: Hypoglycemia Diphenhydramine HCl (Benadryl) 25 mg IVPUSH Q6H PRN PRN Reason: Itching Diphenhydramine HCl (Benadryl) 25 mg PO Q6H PRN PRN Reason: Itching Epinephrine HCl (Epinephrine 1:10,000) 1 mg IVPUSH ASDIRECTED PRN PRN Reason: ACLS Guidelines Fentanyl (Sublimaze) Confirm Administered Dose 250 mcg .ROUTE .STK-MED ONE Stop: 02/20/19 07:34 Fentanyl (Sublimaze) 50 mcg IVPUSH Q5M PRN PRN Reason: Pain Fentanyl Citrate (Fentanyl In Ns 300 Mcg/30 Ml [employer]) 0 mcg IV ASDIRECTED UMA; Protocol Hydralazine HCl (Apresoline) 10 mg IVPUSH ONETIME ONE Stop: 02/20/19 13:33 Last Admin: 02/20/19 14:00 Dose: 10 mg Hydralazine HCl (Apresoline) 10 mg IVPUSH ONETIME ONE Stop: 02/20/19 14:01 Last Admin: 02/20/19 15:10 Dose: 10 mg Hydralazine HCl (Apresoline) 10 mg IVPUSH ONETIME ONE Stop: 02/20/19 15:10 Last Admin: 02/20/19 19:36 Dose: Not Given Hydralazine HCl (Apresoline) 10 mg IVPUSH ONETIME ONE Stop: 02/21/19 15:56 Last Admin: 02/21/19 16:07 Dose: 10 mg Hydromorphone HCl (Dilaudid) 0.5 mg IVPUSH Q1H PRN PRN Reason: Abdominal Pain Last Admin: 02/20/19 12:50 Dose: 0.5 mg Hydromorphone HCl (Dilaudid) Confirm Administered Dose 2 mg .ROUTE .STK-MED ONE Stop: 02/20/19 09:59 Hydromorphone HCl (Dilaudid) Confirm Administered Dose 2 mg .ROUTE .STK-MED ONE Stop: 02/20/19 12:46 Last Admin: 02/20/19 13:33 Dose: 1 mg Hydromorphone HCl (Dilaudid) 0.5 mg IVPUSH Q1H PRN PRN Reason: Abdominal Pain Hydromorphone HCl (Dilaudid) Confirm Administered Dose 2 mg .ROUTE .STK-MED ONE Stop: 02/20/19 13:30 Last Admin: 02/20/19 19:36 Dose: Not Given Hydromorphone HCl (Dilaudid) Confirm Administered Dose 2 mg .ROUTE .STK-MED ONE Stop: 02/20/19 15:27 Last Admin: 02/20/19 15:31 Dose: 1 mg Lactated Ringer's (Ringers, Lactated) 1,000 mls @ 125 mls/hr IV ASDIRECTED UMA Bupivacaine HCl/Epinephrine Bitart (Sensorc Mpf 0.25%-Epi [id number]) Confirm Administered Dose 30 mls @ as directed .ROUTE .STK-MED ONE Stop: 02/20/19 07:31 Sodium Chloride (Normal Saline) Confirm Administered Dose 20 mls @ as directed .ROUTE .STK-MED ONE Stop: 02/20/19 08:32 Cefoxitin Sodium (Mefoxin In Dextrose,Iso-Osm 1 Gm/50 Ml) Confirm Administered Dose 100 mls @ as directed .ROUTE .STK-MED ONE Stop: 02/20/19 08:41 Acetaminophen (Ofirmev) Confirm Administered Dose 100 mls @ as directed IV .STK- MED ONE Stop: 02/20/19 11:00 Cefoxitin Sodium 1 gm/ Premix 50 mls @ 100 mls/hr IV Q6H [facility] Last Admin: 02/20/19 19:01 Dose: Not Given Pantoprazole Sodium 40 mg/ (Sodium Chloride) 10 mls @ 300 mls/hr IV DAILY [facility] Last Admin: 02/22/19 08:18 Dose: 300 mls/hr Lactated Ringer's (Ringers, Lactated) 1,000 mls @ 150 mls/hr IV ASDIRECTED [facility] Last Admin: 02/21/19 19:31 Dose: 150 mls/hr Cefoxitin Sodium 1 gm/ Premix 50 mls @ 100 mls/hr IV Q6H [facility] Last Admin: 02/23/19 03:29 Dose: 100 mls/hr Labetalol HCl (Normodyne) 20 mg IVPUSH ONETIME ONE; Protocol Stop: 02/20/19 12:32 Last Admin: 02/20/19 13:15 Dose: 20 mg Labetalol HCl (Normodyne) 20 mg IVPUSH ONETIME ONE; Protocol Stop: 02/20/19 13:12 Last Admin: 02/20/19 19:36 Dose: Not Given Lidocaine (Xylocaine-Mpf 2%) Confirm Administered Dose 5 ml .ROUTE .STK-MED ONE Stop: 02/20/19 07:33 Lorazepam (Ativan) 1 mg IVPUSH Q4H PRN PRN Reason: Withdrawal Symptoms Last Admin: 02/22/19 02:25 Dose: 1 mg Lorazepam (Ativan) 0.5 mg IVPUSH Q8H UMA Last Admin: 02/21/19 19:02 Dose: 0.5 mg Lorazepam (Ativan) 0.5 mg IVPUSH Q12H UMA Last Admin: 02/23/19 06:05 Dose: 0.5 mg Midazolam HCl (Versed 1 Mg/Ml) Confirm Administered Dose 2 mg .ROUTE .STK-MED ONE Stop: 02/20/19 07:34 Morphine Sulfate (Morphine [employer] 30 Mg In 30 Ml) 0 mg IV ASDIRECTED PRN; Protocol PRN Reason: Pain (severe 7-10) Last Admin: 02/21/19 03:40 Dose: 30 mg Naloxone HCl (Narcan) 0.1 mg IVPUSH ASDIRECTED PRN PRN Reason: Respiratory Depression Naloxone HCl (Narcan) 0.04 mg IVPUSH Q3M PRN PRN Reason: Respiratory Depression Nicotine (Habitrol) 14 mg TRDERM DAILY [facility] Last Admin: 02/22/19 08:17 Dose: 14 mg Ondansetron HCl (Zofran) Confirm Administered Dose 4 mg .ROUTE .STK-MED ONE Stop: 02/20/19 11:57 Ondansetron HCl (Zofran) 4 mg IVPUSH Q6H PRN PRN Reason: Nausea/Vomiting Phenylephrine HCl (Phenylephrine In Ns 100 Mcg/Ml) Confirm Administered Dose 1 mg .ROUTE .STK-MED ONE Stop: 02/20/19 08:41 Propofol (Diprivan 20 Ml) Confirm Administered Dose 400 mg .ROUTE .STK-MED ONE Stop: 02/20/19 07:33 Rocuronium [place] (Zemuron) Confirm Administered Dose 100 mg .ROUTE .STK-MED ONE Stop: 02/20/19 07:33 Rocuronium [place] (Zemuron) Confirm Administered Dose 100 mg .ROUTE .STK-MED ONE Stop: 02/20/19 10:57 Sodium Chloride (Saline Flush) 10 ml FLUSH ASDIRECTED PRN PRN Reason: Keep Vein Open Sodium Chloride (Saline Flush) 2.5 ml FLUSH ASDIRECTED PRN PRN Reason: Keep Vein Open Sodium Chloride (Normal Saline) 10 ml IV ASDIRECTED PRN PRN Reason: IV Use Succinylcholine Chloride (Succinylcholine Chloride) Confirm Administered Dose 200 mg .ROUTE .STK-MED ONE Stop: 02/20/19 07:33 Sugammadex Sodium ([place]) Confirm Administered Dose 200 mg .ROUTE .STK-MED ONE Stop: 02/20/19 11:00 - Exam General: Alert, Oriented HEENT: Pupils Equal, Mucous Membr. Moist/[place] Neck: Supple Lungs: Clear to Auscultation, Normal Respiratory Effort Cardiovascular: Other (Mild coarse breath sounds; improving with deep cough) GI/Abdominal Exam: Other (Dressing intact) Back Exam: Full Range of Motion Skin: Warm, Dry, Intact Wound/Incisions: Dressing Dry and Intact Psy/Mental Status: Alert, Normal Affect, Normal Mood Consult PN Assessment/Plan Problem List Initiated/Reviewed/Updated: Yes Plan: Assessment 1. Status post exploratory laparotomy and appendectomy 2. History of meth and marijuana use 3. Postoperative hypertension Plan Orders per primary team: Surgery as below Pain: IV dilaudid only for severe pain. Percocet 325-5 mg 1-2 tab q 4hr prn pain. Encouraged him to use po meds more today. GI: Advance diet to regular. Encouraged him to stick to small frequent meals and increased liquid intake. Multivitamin today. D/C pantoprazole since tolerating regular diet. Will add dulcolax for bowel regiment today. po cipro and flagyl. Will d/c home on this. Px: SCDs, lovenox Postoperative hypertension: Related to pain; current pain management regimen sufficient with corresponding blood pressure control.
[2019-02-23] MEDS: Nicotine 21 MG/24 Hr Patch TRDERM SCH (16:48)
[2019-02-23] MEDS: Aspirin 325 MG Tab PO SCH (19:25)
[2019-02-23] MEDS ORDERED: LORazepam 1 MG Tab PO ONE (21:06)
[2019-02-24] MEDS: Acetaminophen/oxyCODONE 325-5 MG Tab PO PRN ×2 (01:50→07:40)
[2019-02-24] MEDS: metroNIDAZOLE 250 MG Tab PO SCH ×2 (01:52→08:32)
[2019-02-24 06:31] LABS: BLOOD UREA NITROGEN,BUN 12 mg/dL (7.0-18.0); CARBON DIOXIDE,CO2 26.7 mmol/L (21.0-32.0); CHLORIDE,CL 97 mmol/L (98-107); GLUCOSE RANDOM 110 mg/dL (74-106); POTASSIUM,K 3.7 mmol/L (3.5-5.1); SODIUM,NA 132 mmol/L (136-148)
[2019-02-24] MEDS: Aspirin 325 MG Tab PO SCH (08:33)
[2019-02-24] MEDS: Bisacodyl 5 MG Tab PO SCH (08:33)
[2019-02-24] MEDS: Multivitamin Tab PO SCH (08:33)
[2019-02-24] MEDS: Ciprofloxacin 500 MG Tab PO SCH (08:33)
--- NOTE | 2019-02-24 09:35 | PCM.CONSN ---
- General Info Date of Service: 02/24/19 Subjective Update: Patient reports improvement, pain controlled with oral pain medications, is tolerating oral diet. BP under control. - Review of Systems General: Reports: No Symptoms HEENT: Reports: No Symptoms Pulmonary: Reports: No Symptoms Cardiovascular: Reports: No Symptoms Gastrointestinal: Reports: No Symptoms Genitourinary: Reports: No Symptoms Musculoskeletal: Reports: No Symptoms Skin: Reports: No Symptoms Neurological: Reports: No Symptoms Psychiatric: Reports: No Symptoms - Patient Data Vitals - Most Recent: Last Vital Signs Temp 98.7 F 02/24/19 08:00 Pulse 81 02/24/19 08:00 Resp 16 02/24/19 08:00 BP 138/93 H 02/24/19 08:00 Pulse Ox 97 02/24/19 08:00 Weight - Most Recent: 76.702 kg I&O - Last 24 Hours: Intake & Output 02/23/19 02/24/19 02/24/19 22:59 06:59 14:59 Intake Total 1000 1700 Output Total 815 1005 Balance 185 695 Lab Results Last 24 Hours: Laboratory Results - last 24 hr 02/24/19 02/24/19 Range/Units 05:55 05:55 WBC 7.78 (4.0-11.0) K/uL RBC 4.29 L (4.50-5.90) M/uL Hgb 13.0 (13.0-17.0) g/dL Hct 37.3 L (38.0-50.0) % MCV 86.9 (80.0-98.0) fL MCH 30.3 (27.0-32.0) pg MCHC 34.9 (31.0-37.0) g/dL RDW Std Deviation 41.6 (28.0-62.0) fl RDW Coeff of Roe 13 (11.0-15.0) % Plt Count 229 (150-400) K/uL MPV 9.60 (7.40-12.00) fL Neut % (Auto) 69.1 (48.0-80.0) % Lymph % (Auto) 12.0 L (16.0-40.0) % [place] % (Auto) 14.7 (0.0-15.0) % Eos % (Auto) 4.1 (0.0-7.0) % Baso % (Auto) 0.1 (0.0-1.5) % Neut # (Auto) 5.4 (1.4-5.7) K/uL Lymph # (Auto) 0.9 (0.6-2.4) K/uL [place] # (Auto) 1.1 H (0.0-0.8) K/uL Eos # (Auto) 0.3 (0.0-0.7) K/uL Baso # (Auto) 0.0 (0.0-0.1) K/uL Nucleated RBC % 0.0 /100WBC Nucleated RBCs # 0 K/uL Sodium 132 L (136-148) mmol/L Potassium 3.7 (3.5-5.1) mmol/L Chloride 97 L (98-107) mmol/L Carbon Dioxide 26.7 (21.0-32.0) mmol/L BUN 12 (7.0-18.0) mg/dL Creatinine 0.8 (0.8-1.3) mg/dL Est Cr Clr Drug Dosing 134.50 mL/min Estimated GFR (MDRD) > 60.0 ml/min Glucose 110 H (74-106) mg/dL Calcium 8.7 (8.5-10.1) mg/dL Med Orders - Current: Current Medications Aspirin (Aspirin) 325 mg PO DAILY [facility] Last Admin: 02/24/19 08:33 Dose: 325 mg Bisacodyl (Dulcolax) 10 mg PO DAILY [facility] Last Admin: 02/24/19 08:33 Dose: 10 mg Ciprofloxacin (Ciprofloxacin Hcl) 500 mg PO BID [facility] Last Admin: 02/24/19 08:33 Dose: 500 mg Cyclobenzaprine HCl (Flexeril) 5 mg PO TID PRN PRN Reason: Muscle Spasm Hydromorphone HCl (Dilaudid) 2 mg IVPUSH Q4H PRN PRN Reason: Pain Last Admin: 02/23/19 01:56 Dose: 2 mg Metronidazole (Metronidazole) 250 mg PO Q6H [facility] Last Admin: 02/24/19 08:32 Dose: 250 mg Multivitamins/Minerals/Vitamin C (Tab-A-Darleen) 1 tab PO DAILY [facility] Last Admin: 02/24/19 08:33 Dose: 1 tab Nicotine (Habitrol) 21 mg TRDERM Q24H [facility] Last Admin: 02/23/19 16:48 Dose: 21 mg Ondansetron HCl (Zofran) 4 mg IVPUSH Q8H PRN PRN Reason: Nausea/Vomiting Last Admin: 02/23/19 02:27 Dose: 4 mg Oxycodone/Acetaminophen (Percocet 325-5 Mg) 2 tab PO Q4H PRN PRN Reason: Abdominal Pain Last Admin: 02/24/19 07:40 Dose: 2 tab Phenol/Menthol (Chloraseptic Throat [place]) 1 ml MUCMEM Q2H PRN PRN Reason: Sore Throat Last Admin: 02/22/19 03:58 Dose: 1 spray Discontinued Medications Albuterol (Proventil Neb Soln) 2.5 mg NEB ONETIME PRN PRN Reason: Wheezing Atropine Sulfate (Atropine 0.1 Mg/Ml) 0.5 mg IVPUSH ASDIRECTED PRN PRN Reason: Hypo-perfusion Atropine Sulfate (Atropine 0.1 Mg/Ml) 1 mg IVPUSH ASDIRECTED PRN PRN Reason: Hypo-Perfusion Cefazolin Sodium (Ancef) Confirm Administered Dose 1 gm .ROUTE .STK-MED ONE Stop: 02/20/19 09:49 Dexamethasone (Dexamethasone) Confirm Administered Dose 20 mg .ROUTE .STK-MED ONE Stop: 02/20/19 11:57 Dextrose/Water (Dextrose 50% In Water) 50 ml IVPUSH ASDIRECTED PRN PRN Reason: Hypoglycemia Diphenhydramine HCl (Benadryl) 25 mg IVPUSH Q6H PRN PRN Reason: Itching Diphenhydramine HCl (Benadryl) 25 mg PO Q6H PRN PRN Reason: Itching Epinephrine HCl (Epinephrine 1:10,000) 1 mg IVPUSH ASDIRECTED PRN PRN Reason: ACLS Guidelines Fentanyl (Sublimaze) Confirm Administered Dose 250 mcg .ROUTE .STK-MED ONE Stop: 02/20/19 07:34 Fentanyl (Sublimaze) 50 mcg IVPUSH Q5M PRN PRN Reason: Pain Fentanyl Citrate (Fentanyl In Ns 300 Mcg/30 Ml [employer] Operations [employer]) 0 mcg IV ASDIRECTED UMA; Protocol Hydralazine HCl (Apresoline) 10 mg IVPUSH ONETIME ONE Stop: 02/20/19 13:33 Last Admin: 02/20/19 14:00 Dose: 10 mg Hydralazine HCl (Apresoline) 10 mg IVPUSH ONETIME ONE Stop: 02/20/19 14:01 Last Admin: 02/20/19 15:10 Dose: 10 mg Hydralazine HCl (Apresoline) 10 mg IVPUSH ONETIME ONE Stop: 02/20/19 15:10 Last Admin: 02/20/19 19:36 Dose: Not Given Hydralazine HCl (Apresoline) 10 mg IVPUSH ONETIME ONE Stop: 02/21/19 15:56 Last Admin: 02/21/19 16:07 Dose: 10 mg Hydromorphone HCl (Dilaudid) 0.5 mg IVPUSH Q1H PRN PRN Reason: Abdominal Pain Last Admin: 02/20/19 12:50 Dose: 0.5 mg Hydromorphone HCl (Dilaudid) Confirm Administered Dose 2 mg .ROUTE .STK-MED ONE Stop: 02/20/19 09:59 Hydromorphone HCl (Dilaudid) Confirm Administered Dose 2 mg .ROUTE .STK-MED ONE Stop: 02/20/19 12:46 Last Admin: 02/20/19 13:33 Dose: 1 mg Hydromorphone HCl (Dilaudid) 0.5 mg IVPUSH Q1H PRN PRN Reason: Abdominal Pain Hydromorphone HCl (Dilaudid) Confirm Administered Dose 2 mg .ROUTE .STK-MED ONE Stop: 02/20/19 13:30 Last Admin: 02/20/19 19:36 Dose: Not Given Hydromorphone HCl (Dilaudid) Confirm Administered Dose 2 mg .ROUTE .STK-MED ONE Stop: 02/20/19 15:27 Last Admin: 02/20/19 15:31 Dose: 1 mg Lactated Ringer's (Ringers, Lactated) 1,000 mls @ 125 mls/hr IV ASDIRECTED UMA Bupivacaine HCl/Epinephrine Bitart (Sensorc Mpf 0.25%-Epi [id number]) Confirm Administered Dose 30 mls @ as directed .ROUTE .STK-MED ONE Stop: 02/20/19 07:31 Sodium Chloride (Normal Saline) Confirm Administered Dose 20 mls @ as directed .ROUTE .STK-MED ONE Stop: 02/20/19 08:32 Cefoxitin Sodium (Mefoxin In Dextrose,Iso-Osm 1 Gm/50 Ml) Confirm Administered Dose 100 mls @ as directed .ROUTE .STK-MED ONE Stop: 02/20/19 08:41 Acetaminophen (Ofirmev) Confirm Administered Dose 100 mls @ as directed IV .STK- MED ONE Stop: 02/20/19 11:00 Cefoxitin Sodium 1 gm/ Premix 50 mls @ 100 mls/hr IV Q6H [facility] Last Admin: 02/20/19 19:01 Dose: Not Given Pantoprazole Sodium 40 mg/ (Sodium Chloride) 10 mls @ 300 mls/hr IV DAILY [facility] Last Admin: 02/22/19 08:18 Dose: 300 mls/hr Lactated Ringer's (Ringers, Lactated) 1,000 mls @ 150 mls/hr IV ASDIRECTED [facility] Last Admin: 02/21/19 19:31 Dose: 150 mls/hr Cefoxitin Sodium 1 gm/ Premix 50 mls @ 100 mls/hr IV Q6H [facility] Last Admin: 02/23/19 03:29 Dose: 100 mls/hr Lactated Ringer's (Ringers, Lactated) 1,000 mls @ 125 mls/hr IV ASDIRECTED [facility] Stop: 02/23/19 09:00 Last Admin: 02/23/19 05:44 Dose: 125 mls/hr Labetalol HCl (Normodyne) 20 mg IVPUSH ONETIME ONE; Protocol Stop: 02/20/19 12:32 Last Admin: 02/20/19 13:15 Dose: 20 mg Labetalol HCl (Normodyne) 20 mg IVPUSH ONETIME ONE; Protocol Stop: 02/20/19 13:12 Last Admin: 02/20/19 19:36 Dose: Not Given Lidocaine (Xylocaine-Mpf 2%) Confirm Administered Dose 5 ml .ROUTE .STK-MED ONE Stop: 02/20/19 07:33 Lorazepam (Ativan) 1 mg IVPUSH Q4H PRN PRN Reason: Withdrawal Symptoms Last Admin: 02/22/19 02:25 Dose: 1 mg Lorazepam (Ativan) 0.5 mg IVPUSH Q8H [facility] Last Admin: 02/21/19 19:02 Dose: 0.5 mg Lorazepam (Ativan) 0.5 mg IVPUSH Q12H [facility] Last Admin: 02/23/19 06:05 Dose: 0.5 mg Lorazepam (Ativan) 1 mg PO ONETIME ONE Stop: 02/23/19 21:07 Last Admin: 02/23/19 21:22 Dose: 1 mg Midazolam HCl (Versed 1 Mg/Ml) Confirm Administered Dose 2 mg .ROUTE .STK-MED ONE Stop: 02/20/19 07:34 Morphine Sulfate (Morphine [employer]ging Operations Inspector 30 Mg In 30 Ml) 0 mg IV ASDIRECTED PRN; Protocol PRN Reason: Pain (severe 7-10) Last Admin: 02/21/19 03:40 Dose: 30 mg Naloxone HCl (Narcan) 0.1 mg IVPUSH ASDIRECTED PRN PRN Reason: Respiratory Depression Naloxone HCl (Narcan) 0.04 mg IVPUSH Q3M PRN PRN Reason: Respiratory Depression Nicotine (Habitrol) 14 mg TRDERM DAILY [facility] Last Admin: 02/22/19 08:17 Dose: 14 mg Ondansetron HCl (Zofran) Confirm Administered Dose 4 mg .ROUTE .STK-MED ONE Stop: 02/20/19 11:57 Ondansetron HCl (Zofran) 4 mg IVPUSH Q6H PRN PRN Reason: Nausea/Vomiting Phenylephrine HCl (Phenylephrine In Ns 100 Mcg/Ml) Confirm Administered Dose 1 mg .ROUTE .STK-MED ONE Stop: 02/20/19 08:41 Propofol (Diprivan 20 Ml) Confirm Administered Dose 400 mg .ROUTE .STK-MED ONE Stop: 02/20/19 07:33 Rocuronium [place] (Zemuron) Confirm Administered Dose 100 mg .ROUTE .STK-MED ONE Stop: 02/20/19 07:33 Rocuronium [place] (Zemuron) Confirm Administered Dose 100 mg .ROUTE .STK-MED ONE Stop: 02/20/19 10:57 Sodium Chloride (Saline Flush) 10 ml FLUSH ASDIRECTED PRN PRN Reason: Keep Vein Open Sodium Chloride (Saline Flush) 2.5 ml FLUSH ASDIRECTED PRN PRN Reason: Keep Vein Open Sodium Chloride (Normal Saline) 10 ml IV ASDIRECTED PRN PRN Reason: IV Use Succinylcholine Chloride (Succinylcholine Chloride) Confirm Administered Dose 200 mg .ROUTE .STK-MED ONE Stop: 02/20/19 07:33 Sugammadex Sodium (Brid[place]) Confirm Administered Dose 200 mg .ROUTE .STK-MED ONE Stop: 02/20/19 11:00 - Exam General: Alert, Oriented, Cooperative Lungs: Clear to Auscultation, Normal Respiratory Effort Cardiovascular: Regular Rate, Regular Rhythm GI/Abdominal Exam: Soft, No Distention, Other (VIGNESH draining) Extremities: No Pedal Edema Skin: Warm, Dry Wound/Incisions: Healing Well Neurological: No New Focal Deficit Psy/Mental Status: Alert, Normal Affect, Normal Mood Consult PN Assessment/Plan Problem List Initiated/Reviewed/Updated: Yes Plan: Medical Team Consult: 1. Exploratory laparotomy/appendectomy- on oral antibiotics and pain medications , diet advanced- orders per primary team- likely discharge home today 2. Concern for withdrawal- no withdrawal symptoms 3. Post-op HTN- blood pressure under control when pain under control, no need for oral anti-hypertensives at this point. Discharge per primary team but stable from medical standpoint.
--- NOTE | 2019-02-24 09:51 | PCM.DCSUM1 ---
Discharge Summary - Hospital Course Free Text/Narrative:: Patient is a 38 year old male who presented on 02/20 with acute appendicitis. He was seen at an OSH and found to have an elevated WBC. The CT scan at their facility showed a dilated retrocecal appendix with no evidence of perforation. His history was significant for a previous episode of appendicitis. He underwent a surgery but due to inflammation and abscess formation the appendix was not found/was unable to be removed and drains were placed. He was taken to the OR. He was converted from laparoscopic to open due to an inability to adequately visualize the appendix. He had significant scar tissue behind the cecum. The tip of the appendix was dissected free of surrounding structures but more proximally the appendix was unable to be dissected free due to dense scar tissue and inflammation. The tip of the appendix was sent to pathology and verified as appendical tissue. There was a piece of stool/ appendicolith identified near the base of the appendix. This was free and where it was removed from was necrotic. The decision was made to repair the area with interrupted silks and oversew it with an omental patch. A drain was placed and the patient was closed. He did well in the postoperative period. His pain was controlled with IV medications. He regained bowel function and his diet was advanced. He was switched to oral meds. His drain output decreased significantly and it was removed today. He was switched to oral antibiotics. He is stable and cleared for discharge. - Discharge Data Discharge Date: 02/24/19 Discharge Disposition: Home, Self-Care 01 Condition: Good - Referral to Home Health Primary Care Physician: PCP None - Discharge Diagnosis/Problem(s) (1) Acute appendicitis SNOMED Code(s): 64502560 ICD Code: K35.80 - UNSPECIFIED ACUTE APPENDICITIS Status: Acute Current Visit: No Qualifiers: Acute appendicitis type: with localized peritonitis Appendicitis gangrene presence: without gangrene Appendicitis perforation presence: without perforation Appendicitis abscess presence: without abscess Qualified Code(s) : K35.30 - Acute appendicitis with localized peritonitis, without perforation or gangrene - Patient Summary/Data Operative Procedure(s) Performed: 1) laparoscopic attempt converted to open appendectomy. 2) ex lap. 3) appendectomy Consults: Consultations 02/20/19 13:12 Consult to Physician [CONS] Routine - Patient Instructions Diet: Regular Diet as Tolerated Activity: No Lifting Over 20 Pounds (for six weeks ), Rest and Relax Today Driving: Do Not Drive (for one week after surgery or while on narcotics ) Showering/Bathing: May Shower, No Tub Bathing/Swimming (for 2 weeks after surgery ) Wound/Incision Care: Keep Operative Site/Wound Site Clean and Dry Notify Provider of: Fever, Increased Pain, Swelling and Redness, Drainage, Nausea and/or Vomiting Other/Special Instructions: No work for 2 weeks - Discharge Plan *PRESCRIPTION DRUG MONITORING PROGRAM REVIEWED*: Yes *COPY OF PRESCRIPTION DRUG MONITORING REPORT IN PATIENT BEN: Yes Prescriptions/Med Rec: Bisacodyl [Dulcolax] 10 mg PO BID #30 tablet Ciprofloxacin [Ciprofloxacin HCl] 500 mg PO BID #3 tablet metroNIDAZOLE 250 mg PO Q6H #7 tablet Home Medications: Home Meds Aspirin 1 tab PO DAILY 02/23/19 [History] Vitamin B Complex [B Complex] 1 each PO DAILY 02/23/19 [History] Aspirin 325 mg PO DAILY tablet 02/24/19 [Rx] Bisacodyl [Dulcolax] 10 mg PO BID #30 tablet 02/24/19 [Rx] Ciprofloxacin [Ciprofloxacin HCl] 500 mg PO BID #3 tablet 02/24/19 [Rx] Multivitamins [Tab-A-Darleen] 1 tab PO DAILY tablet 02/24/19 [Rx] Nicotine [Habitrol] 21 mg TRDERM Q24H patch 02/24/19 [Rx] metroNIDAZOLE 250 mg PO Q6H #7 tablet 02/24/19 [Rx] Patient Handouts: Open Appendectomy, Care After, Hydromorphone tablets, Amoxicillin; Clavulanic Acid extended-release tablets Referrals: Benjamin Quinones MD [Physician] - 03/05/19 2:15 pm (Arrive 15 minutes early with photo ID and insurance ) - Discharge Summary/Plan Comment DC Time >30 min.: No - General Info Functional Status: Reports: Pain Controlled, Tolerating Diet, Ambulating, Urinating - Review of Systems General: Reports: No Symptoms HEENT: Reports: No Symptoms Pulmonary: Reports: No Symptoms Cardiovascular: Reports: No Symptoms Gastrointestinal: Reports: No Symptoms Genitourinary: Reports: No Symptoms Musculoskeletal: Reports: No Symptoms - Patient Data Vitals - Most Recent: Last Vital Signs Temp 37.1 C 02/24/19 08:00 Pulse 81 02/24/19 08:00 Resp 16 02/24/19 08:00 BP 138/93 H 02/24/19 08:00 Pulse Ox 97 02/24/19 08:00 Weight - Most Recent: 76.702 kg I&O - Last 24 hours: Intake & Output 02/23/19 02/24/19 02/24/19 22:59 06:59 14:59 Intake Total 1000 1700 Output Total 815 1005 Balance 185 695 Lab Results - Last 24 hrs: Laboratory Results - last 24 hr 02/24/19 02/24/19 Range/Units 05:55 05:55 WBC 7.78 (4.0-11.0) K/uL RBC 4.29 L (4.50-5.90) M/uL Hgb 13.0 (13.0-17.0) g/dL Hct 37.3 L (38.0-50.0) % MCV 86.9 (80.0-98.0) fL MCH 30.3 (27.0-32.0) pg MCHC 34.9 (31.0-37.0) g/dL RDW Std Deviation 41.6 (28.0-62.0) fl RDW Coeff of Roe 13 (11.0-15.0) % Plt Count 229 (150-400) K/uL MPV 9.60 (7.40-12.00) fL Neut % (Auto) 69.1 (48.0-80.0) % Lymph % (Auto) 12.0 L (16.0-40.0) % [place] % (Auto) 14.7 (0.0-15.0) % Eos % (Auto) 4.1 (0.0-7.0) % Baso % (Auto) 0.1 (0.0-1.5) % Neut # (Auto) 5.4 (1.4-5.7) K/uL Lymph # (Auto) 0.9 (0.6-2.4) K/uL [place] # (Auto) 1.1 H (0.0-0.8) K/uL Eos # (Auto) 0.3 (0.0-0.7) K/uL Baso # (Auto) 0.0 (0.0-0.1) K/uL Nucleated RBC % 0.0 /100WBC Nucleated RBCs # 0 K/uL Sodium 132 L (136-148) mmol/L Potassium 3.7 (3.5-5.1) mmol/L Chloride 97 L (98-107) mmol/L Carbon Dioxide 26.7 (21.0-32.0) mmol/L BUN 12 (7.0-18.0) mg/dL Creatinine 0.8 (0.8-1.3) mg/dL Est Cr Clr Drug Dosing 134.50 mL/min Estimated GFR (MDRD) > 60.0 ml/min Glucose 110 H (74-106) mg/dL Calcium 8.7 (8.5-10.1) mg/dL Med Orders - Current: Current Medications Aspirin (Aspirin) 325 mg PO DAILY [facility] Last Admin: 02/24/19 08:33 Dose: 325 mg Bisacodyl (Dulcolax) 10 mg PO DAILY [facility] Last Admin: 02/24/19 08:33 Dose: 10 mg Ciprofloxacin (Ciprofloxacin Hcl) 500 mg PO BID [facility] Last Admin: 02/24/19 08:33 Dose: 500 mg Cyclobenzaprine HCl (Flexeril) 5 mg PO TID PRN PRN Reason: Muscle Spasm Hydromorphone HCl (Dilaudid) 2 mg IVPUSH Q4H PRN PRN Reason: Pain Last Admin: 02/23/19 01:56 Dose: 2 mg Metronidazole (Metronidazole) 250 mg PO Q6H [facility] Last Admin: 02/24/19 08:32 Dose: 250 mg Multivitamins/Minerals/Vitamin C (Tab-A-Darleen) 1 tab PO DAILY [facility] Last Admin: 02/24/19 08:33 Dose: 1 tab Nicotine (Habitrol) 21 mg TRDERM Q24H [facility] Last Admin: 02/23/19 16:48 Dose: 21 mg Ondansetron HCl (Zofran) 4 mg IVPUSH Q8H PRN PRN Reason: Nausea/Vomiting Last Admin: 02/23/19 02:27 Dose: 4 mg Oxycodone/Acetaminophen (Percocet 325-5 Mg) 2 tab PO Q4H PRN PRN Reason: Abdominal Pain Last Admin: 02/24/19 07:40 Dose: 2 tab Phenol/Menthol (Chloraseptic Throat [place]) 1 ml MUCMEM Q2H PRN PRN Reason: Sore Throat Last Admin: 02/22/19 03:58 Dose: 1 spray Discontinued Medications Albuterol (Proventil Neb Soln) 2.5 mg NEB ONETIME PRN PRN Reason: Wheezing Atropine Sulfate (Atropine 0.1 Mg/Ml) 0.5 mg IVPUSH ASDIRECTED PRN PRN Reason: Hypo-perfusion Atropine Sulfate (Atropine 0.1 Mg/Ml) 1 mg IVPUSH ASDIRECTED PRN PRN Reason: Hypo-Perfusion Cefazolin Sodium (Ancef) Confirm Administered Dose 1 gm .ROUTE .STK-MED ONE Stop: 02/20/19 09:49 Dexamethasone (Dexamethasone) Confirm Administered Dose 20 mg .ROUTE .STK-MED ONE Stop: 02/20/19 11:57 Dextrose/Water (Dextrose 50% In Water) 50 ml IVPUSH ASDIRECTED PRN PRN Reason: Hypoglycemia Diphenhydramine HCl (Benadryl) 25 mg IVPUSH Q6H PRN PRN Reason: Itching Diphenhydramine HCl (Benadryl) 25 mg PO Q6H PRN PRN Reason: Itching Epinephrine HCl (Epinephrine 1:10,000) 1 mg IVPUSH ASDIRECTED PRN PRN Reason: ACLS Guidelines Fentanyl (Sublimaze) Confirm Administered Dose 250 mcg .ROUTE .STK-MED ONE Stop: 02/20/19 07:34 Fentanyl (Sublimaze) 50 mcg IVPUSH Q5M PRN PRN Reason: Pain Fentanyl Citrate (Fentanyl In Ns 300 Mcg/30 Ml Subassembly Supervisor) 0 mcg IV ASDIRECTED UMA; Protocol Hydralazine HCl (Apresoline) 10 mg IVPUSH ONETIME ONE Stop: 02/20/19 13:33 Last Admin: 02/20/19 14:00 Dose: 10 mg Hydralazine HCl (Apresoline) 10 mg IVPUSH ONETIME ONE Stop: 02/20/19 14:01 Last Admin: 02/20/19 15:10 Dose: 10 mg Hydralazine HCl (Apresoline) 10 mg IVPUSH ONETIME ONE Stop: 02/20/19 15:10 Last Admin: 02/20/19 19:36 Dose: Not Given Hydralazine HCl (Apresoline) 10 mg IVPUSH ONETIME ONE Stop: 02/21/19 15:56 Last Admin: 02/21/19 16:07 Dose: 10 mg Hydromorphone HCl (Dilaudid) 0.5 mg IVPUSH Q1H PRN PRN Reason: Abdominal Pain Last Admin: 02/20/19 12:50 Dose: 0.5 mg Hydromorphone HCl (Dilaudid) Confirm Administered Dose 2 mg .ROUTE .STK-MED ONE Stop: 02/20/19 09:59 Hydromorphone HCl (Dilaudid) Confirm Administered Dose 2 mg .ROUTE .STK-MED ONE Stop: 02/20/19 12:46 Last Admin: 02/20/19 13:33 Dose: 1 mg Hydromorphone HCl (Dilaudid) 0.5 mg IVPUSH Q1H PRN PRN Reason: Abdominal Pain Hydromorphone HCl (Dilaudid) Confirm Administered Dose 2 mg .ROUTE .STK-MED ONE Stop: 02/20/19 13:30 Last Admin: 02/20/19 19:36 Dose: Not Given Hydromorphone HCl (Dilaudid) Confirm Administered Dose 2 mg .ROUTE .ST-MED ONE Stop: 02/20/19 15:27 Last Admin: 02/20/19 15:31 Dose: 1 mg Lactated Ringer's (Ringers, Lactated) 1,000 mls @ 125 mls/hr IV ASDIRECTED [facility] Bupivacaine HCl/Epinephrine Bitart (Sensorc Mpf 0.25%-Epi [id number]) Confirm Administered Dose 30 mls @ as directed .ROUTE .ST-MED ONE Stop: 02/20/19 07:31 Sodium Chloride (Normal Saline) Confirm Administered Dose 20 mls @ as directed .ROUTE .ST-MED ONE Stop: 02/20/19 08:32 Cefoxitin Sodium (Mefoxin In Dextrose,Iso-Osm 1 Gm/50 Ml) Confirm Administered Dose 100 mls @ as directed .ROUTE .STK-MED ONE Stop: 02/20/19 08:41 Acetaminophen (Ofirmev) Confirm Administered Dose 100 mls @ as directed IV .STK- MED ONE Stop: 02/20/19 11:00 Cefoxitin Sodium 1 gm/ Premix 50 mls @ 100 mls/hr IV Q6H [facility] Last Admin: 02/20/19 19:01 Dose: Not Given Pantoprazole Sodium 40 mg/ (Sodium Chloride) 10 mls @ 300 mls/hr IV DAILY [facility] Last Admin: 02/22/19 08:18 Dose: 300 mls/hr Lactated Ringer's (Ringers, Lactated) 1,000 mls @ 150 mls/hr IV ASDIRECTED [facility] Last Admin: 02/21/19 19:31 Dose: 150 mls/hr Cefoxitin Sodium 1 gm/ Premix 50 mls @ 100 mls/hr IV Q6H [facility] Last Admin: 02/23/19 03:29 Dose: 100 mls/hr Lactated Ringer's (Ringers, Lactated) 1,000 mls @ 125 mls/hr IV ASDIRECTED [facility] Stop: 02/23/19 09:00 Last Admin: 02/23/19 05:44 Dose: 125 mls/hr Labetalol HCl (Normodyne) 20 mg IVPUSH ONETIME ONE; Protocol Stop: 02/20/19 12:32 Last Admin: 02/20/19 13:15 Dose: 20 mg Labetalol HCl (Normodyne) 20 mg IVPUSH ONETIME ONE; Protocol Stop: 02/20/19 13:12 Last Admin: 02/20/19 19:36 Dose: Not Given Lidocaine (Xylocaine-Mpf 2%) Confirm Administered Dose 5 ml .ROUTE .STK-MED ONE Stop: 02/20/19 07:33 Lorazepam (Ativan) 1 mg IVPUSH Q4H PRN PRN Reason: Withdrawal Symptoms Last Admin: 02/22/19 02:25 Dose: 1 mg Lorazepam (Ativan) 0.5 mg IVPUSH Q8H [facility] Last Admin: 02/21/19 19:02 Dose: 0.5 mg Lorazepam (Ativan) 0.5 mg IVPUSH Q12H [facility] Last Admin: 02/23/19 06:05 Dose: 0.5 mg Lorazepam (Ativan) 1 mg PO ONETIME ONE Stop: 02/23/19 21:07 Last Admin: 02/23/19 21:22 Dose: 1 mg Midazolam HCl (Versed 1 Mg/Ml) Confirm Administered Dose 2 mg .ROUTE .STK-MED ONE Stop: 02/20/19 07:34 Morphine Sulfate (Morphine Subassembly Supervisor 30 Mg In 30 Ml) 0 mg IV ASDIRECTED PRN; Protocol PRN Reason: Pain (severe 7-10) Last Admin: 02/21/19 03:40 Dose: 30 mg Naloxone HCl (Narcan) 0.1 mg IVPUSH ASDIRECTED PRN PRN Reason: Respiratory Depression Naloxone HCl (Narcan) 0.04 mg IVPUSH Q3M PRN PRN Reason: Respiratory Depression Nicotine (Habitrol) 14 mg TRDERM DAILY [facility] Last Admin: 02/22/19 08:17 Dose: 14 mg Ondansetron HCl (Zofran) Confirm Administered Dose 4 mg .ROUTE .STK-MED ONE Stop: 02/20/19 11:57 Ondansetron HCl (Zofran) 4 mg IVPUSH Q6H PRN PRN Reason: Nausea/Vomiting Phenylephrine HCl (Phenylephrine In Ns 100 Mcg/Ml) Confirm Administered Dose 1 mg .ROUTE .STK-MED ONE Stop: 02/20/19 08:41 Propofol (Diprivan 20 Ml) Confirm Administered Dose 400 mg .ROUTE .STK-MED ONE Stop: 02/20/19 07:33 Rocuronium [place] (Zemuron) Confirm Administered Dose 100 mg .ROUTE .STK-MED ONE Stop: 02/20/19 07:33 Rocuronium [place] (Zemuron) Confirm Administered Dose 100 mg .ROUTE .STK-MED ONE Stop: 02/20/19 10:57 Sodium Chloride (Saline Flush) 10 ml FLUSH ASDIRECTED PRN PRN Reason: Keep Vein Open Sodium Chloride (Saline Flush) 2.5 ml FLUSH ASDIRECTED PRN PRN Reason: Keep Vein Open Sodium Chloride (Normal Saline) 10 ml IV ASDIRECTED PRN PRN Reason: IV Use Succinylcholine Chloride (Succinylcholine Chloride) Confirm Administered Dose 200 mg .ROUTE .STK-MED ONE Stop: 02/20/19 07:33 Sugammadex Sodium ([place]) Confirm Administered Dose 200 mg .ROUTE .STK-MED ONE Stop: 02/20/19 11:00 - Exam General: Reports: Alert, Oriented, Cooperative HEENT: Reports: Pupils Equal, Pupils Reactive Lungs: Reports: Normal Respiratory Effort Cardiovascular: Reports: Regular Rate GI/Abdominal Exam: Soft, Non-Tender, No Distention, No Mass Back Exam: Reports: Normal Inspection Extremities: Normal Inspection
== END 2019-02-24 12:30 | disposition home or self-care (01) | DRG 234 ==
LOC: MW.SDS 06:50 → MW.MS 06:52 → MW.SDS 12:52 → MW.MS 14:24 → MW.ICU 15:00 → MW.MS 02-21 20:22
PROVIDERS: ADMIT Surgery; ATTEND Surgery
PROC: 0DTJ0ZZ Resection of Appendix, Open Approach (ICD-10-PCS; principal; 2019-02-20)
PROC: 0WJG4ZZ Inspection of Peritoneal Cavity, Percutaneous Endoscopic Approach (ICD-10-PCS; 2019-02-20)
DX: K35.30 Acute appendicitis with localized peritonitis, without perforation or gangrene (principal); F17.210 Nicotine dependence, cigarettes, uncomplicated; F15.90 Other stimulant use, unspecified, uncomplicated; F12.90 Cannabis use, unspecified, uncomplicated; E87.1 Hypo-osmolality and hyponatremia; Z86.718 Personal history of other venous thrombosis and embolism; I97.3 Postprocedural hypertension; Z79.82 Long term (current) use of aspirin; Z79.899 Other long term (current) drug therapy; Z88.2 Allergy status to sulfonamides; Z53.31 Laparoscopic surgical procedure converted to open procedure
CPT/HCPCS: 00840; 36415; 80048; 80053; 80305-QW; 82962; 85025; 87070; 87075; 87205; A9270-GY; C9113; J0131; J0330; J0360; J0690; J0694; J1100; J1170; J2001; J2060; J2250; J2274; J2370; J2405; J2704; J3010; J3490; J7050; J7120